=== PATIENT | female | born 1960 | race Caucasian/White ===

== ENCOUNTER 2022-05-08 09:18 | Outpatient (CLI) | payer OTHER, SELFPAY ==
[2022-05-08 15:01] LABS: SARS PCR* Negative SARS-CoV-2 (Negative)
== END 2022-05-08 09:19 | disposition home or self-care (01) ==
LOC: FBOREF 09:18
PROVIDERS: PCP Family Medicine; Visit Provider Family Medicine
DX: Z20.822 Contact with and (suspected) exposure to COVID-19 (principal); Z01.818 Encounter for other preprocedural examination
CPT/HCPCS: 87635

== ENCOUNTER 2022-05-09 09:10 | Outpatient (CLI) | payer OTHER, SELFPAY ==
--- OUTSIDE RECORDS SUMMARY | 2022-05-01 16:16 | XMS_ITS | Continuity of Care Document ---
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, 1 ppd smoker, rare EtOH Additional Data Assigned Sex Female Problems Active Problems Medical Problem Onset Date Status Asthma Active Hypertension Active Psoriasis Active Anxiety and depression Active Allergic rhinitis Active CANDI (obstructive sleep apnea) Active History of colon polyps November 05, 2017 Resolved Allergic conjunctivitis Active Morbid obesity Active Postmenopausal bleeding Active S/P knee replacement May 31, 2016 Resolved S/P section Resolved History of colonoscopy with November 05, 2017 Resolved polypectomy Medications Medication Status Dose Units Route Directions Qty Days Start End Ins tructions Date Date Albuterol Active 2 PUFF INH Every 4 25 December Sulfate Hours as , (Proair Hfa) needed for 2021 90 Mcg/Puff Wheezing/Di 12:17pm INH fficult Breathing Betamethasone Active 0.05 % EX Twice A Day 60 Decembe Dipropionate r , (Diprolene 2019 Af) 0.05 % 8:18pm CRE Bupropion Hcl Active 150 MG PO Daily October (Wellbutrin , Xl) 150 Mg 2021 TAB 12:32pm Bupropion Hcl Active 300 MG PO Daily October (Wellbutrin 5th, Xl) 300 Mg 2021 TAB 12:32pm Clindamycin Active 4 TAB PO Once July 30 tab s one Hcl 5th, hour before 2019 dentist 10:58am Escitalopram Active 10 MG PO Daily December Total daily Oxalate , dose 30 mg (Lexapro) 10 2021 Mg TAB 6:40pm Escitalopram Active 20 MG PO Daily December Total Daily Oxalate , dose 30 mg 2021 6:40pm Fluticasone-S Active 1 PUFF INH Twice A Day 26 February almeterol , (Advair 2021 Diskus 8:50am 250/50) 250 Mcg/50 Mcg INH Folic Acid Active 1 MG PO Daily April 25, 2021 3:02pm Hctz/Valsarta Active 1 TAB PO Daily October n , (Valsartan-Hy 2021 drochlorothia 12:32pm zide) 320 Mg/25 Mg TAB Lorazepam Active 1 MG PO Every December (Ativan) 1 Mg Hours for , TAB Anxiety 2018 3:30pm Methotrexate Active 20 MG PO One Day Per March Sodium Week 2021 12:19am Montelukast Active 10 MG PO Daily be Sodium r 2020 8:37pm Multivitamins Active 1 TAB PO Daily 100 (Multivitamin /Minerals) TAB Olopatadine Active 1 DROP BOTH Twice A Day 31 March Hcl EYES 2021 12:19am Triamcinolone Active 1 SPRAY BOTH Daily 27 December Acetonide NOST , (Triamcinolon 2019 e Acetonide 4:08pm Nasal [place]) 55 Mcg/Act AER Albuterol Discontin 1 PUFF Every 4-01 April ued Hours as , needed 2019 9:13am Albuterol Discontin 2 PUFF INH Every 4 May Sulfate ued Hours as , , (Proair Hfa) needed for 2018 2021 90 Mcg/Puff Wheezing/Di 6:42pm 12:17p INH fficult m Breathing Betamethasone Discontin 0.05 % EX Twice A Day May D ecemb Dipropionate ued , er (Diprolene 2019, Af) 0.05 % 9:40pm 2020 CRE 8:18pm Betamethasone Discontin 0.05 % EX Twice A Day May A ugust Dipropionate ued , , (Diprolene 2018 2019 Af) 0.05 % 6:42pm 9:40pm CRE Betamethasone Discontin 0.05 % EX Twice A Day Hermila plasencia Dipropionate ued , (Diprolene 2018 Af) 0.05 % 6:42pm CRE Bupropion Hcl Discontin 150 MG PO Daily March (Wellbutrin ued 30th, y 5th, Xl) 150 Mg 2020 2021 TAB 3:01pm 12:32p m Bupropion Hcl Discontin 300 MG PO Daily May (Wellbutrin ued 3rd, y 5th, Xl) 300 Mg 2020 2021 TAB 12:40pm 12:32p m Bupropion Hcl Discontin 300 MG PO Daily May (Wellbutrin ued r 23rd, , Xl) 300 Mg 2019 2020 TAB 12:18pm 12:40p m Bupropion Hcl Discontin 150 MG PO Daily March (Wellbutrin ued r , 30, Xl) 150 Mg 2019 2020 TAB 12:18pm 3:01pm Bupropion Hcl Discontin 150 MG PO Daily 90 (Wellbutrin ued er er Xl) 150 Mg , TAB 2019 2019 11:13am 12:18p m Bupropion Hcl Discontin 300 MG PO Daily 90 Decemb (Wellbutrin ued er er Xl) 300 Mg , TAB 2019 2019 11:13am 12:18p m Bupropion Hcl Discontin 450 MG PO Daily 30 Junem (Bupropion ued er linda Hcl Xl (, 16, Hr)) 450 Mg 2019 2019 TAB 12:22pm 11:13a m Bupropion Hcl Discontin 300 MG PO Daily April (Bupropion ued 16, linda Hcl Xl (2019 14th, Hr)) 300 Mg 9:082019 TAB 12:22p m Bupropion Hcl Discontin 300 MG PO Daily January (Bupropion ued , 16th, Hcl Xl (2019 Hr)) 300 Mg 10:27am 9:08am TAB Bupropion Hcl Discontin 300 MG PO Daily December (Bupropion ued 11, , Hcl Xl (2018 Hr)) 300 Mg 4:08pm 10:27a TAB m Bupropion Hcl Discontin 1 TAB Daily December (Bupropion ued , Hcl Xl (24 2018 Hr)) 300 Mg 4:08pm TAB Cephalexin Discontin 500 MG PO Three Times March Decem b (Keflex) 500 ued A Day 4th, er Mg CAP 2019, 9:50am 2019 11:17a m Clindamycin Discontin 4 TAB PO Once December 4 t abs one Hcl ued , r 5th, hour before 2018 2019 dentist 7:09pm 10:58a m Clindamycin Discontin 3 TAB PO Once 02 JanuaryDecember 27 ta bs one Hcl ued , 11, hour before 2018 2018 dentist 4:08pm 7:09pm Clindamycin Discontin 4 TAB Once December 28 ta b one Hcl ued , hour before 2018 dentist 4:08pm Diphtheria/Te Discontin 0.5 ML IM Once March tanus/Acell ued 2nd, 2nd, Pertussis 2021 2021 (Adacel) 0.5 9:10am 10:36a Ml INJ m Escitalopram Discontin 30 MG PO Daily 135 December Oxalate ued r , , 2020 2021 8:37pm 6:40pm Escitalopram Discontin 30 MG PO Daily July Oxalate ued 24th, er 2020 03, 4:56pm 2020 8:37pm Escitalopram Discontin 30 MG PO Daily April Oxalate ued , r 2019, 9:08am 2019 4:56pm Escitalopram Discontin 30 MG PO Daily January Oxalate ued , , 2019 2019 10:27am 9:08am Escitalopram Discontin 30 MG PO Daily December Oxalate ued , , 2018 2019 4:08pm 10:27a m Escitalopram Discontin 1.5 TAB Daily December Oxalate ued 2018 4:08pm Fluticasone-S Discontin 1 PUFF INH Twice A Day 3 February almeterol ued r , (Advair 2019 2021 Diskus 8:18pm 8:50am 250/50) 250 Mcg/50 Mcg INH Fluticasone-S Discontin 1 PUFF INH Twice A Day 3 May D ecemb almeterol ued , er (Advair 2019, Diskus 9:40pm 2019 250/50) 250 8:18pm Mcg/50 Mcg INH Fluticasone-S Discontin 1 PUFF INH Twice A Day 27 December Au erinn almeterol ued , , (Advair 2018 2019 Diskus 4:08pm 9:40pm 250/50) 250 Mcg/50 Mcg INH Fluticasone-S Discontin 1 PUFF Twice A Day Ma brianna almeterol ued , (Advair 2018 Diskus 4:08pm 250/50) 250 Mcg/50 Mcg INH Folic Acid Discontin 1 MG PO Daily February ued , 2019 11:12am 3:02pm Folic Acid Discontin 1 MG PO Daily December ued , 2018 4:08pm 11:12a m Folic Acid Discontin 1 TAB Daily December ued 2018 4:08pm Hctz/Losartan Discontin 1 TAB PO Daily December ued , (Losartan/Hct 2018 z) 100 Mg/25 4:08pm Mg TAB Hctz/Valsarta Discontin 1 TAB PO Daily March n ued , 5th, (Valsartan-Hy 2020 2021 drochlorothia 3:02pm 12:32p zide) 320 m Mg/25 Mg TAB Hctz/Valsarta Discontin 1 TAB PO Daily March n ued , , (Valsartan-Hy 2019 2020 drochlorothia 9:50am 3:02pm zide) 320 Mg/25 Mg TAB Hctz/Valsarta Discontin 1 TAB PO Daily February n ued , , (Valsartan-Hy 2019 2019 drochlorothia 1:36pm 9:50am zide) 320 Mg/25 Mg TAB Hctz/Valsarta Discontin 1 TAB PO Daily December n ued , , (Valsartan-Hy 2019 2019 drochlorothia 11:37am 1:36pm zide) 320 Mg/25 Mg TAB Hctz/Valsarta Discontin 1 TAB PO Daily May n ued , , (Valsartan-Hy 2018 2019 drochlorothia 6:42pm 11:37a zide) 320 m Mg/25 Mg TAB Hctz/Valsarta Discontin 1 TAB PO Daily December n ued , , (Valsartan-Hy 2018 2018 drochlorothia 4:10pm 6:42pm zilaecy) 160 Mg/25 Mg TAB Methotrexate Discontin 20 MG PO One Day Per December e Sodium ued Week , 2021 2:05pm 12:19a m Methotrexate Discontin 20 MG PO One Day Per Novem M arch Sodium ued Week r , 2020 9:10pm 2:05pm Methotrexate Discontin 20 MG PO One Day Per Decembe N ovemb Sodium ued Week r , er 2019, 12:18pm 2020 9:10pm Methotrexate Discontin 20 MG PO One Day Per March emb Sodium ued Week , 2019, 9:50am 2019 12:18p m Methotrexate Discontin 20 MG PO One Day Per May Ju ne Sodium ued Week , 2018 6:42pm 9:50am Methotrexate Discontin 20 MG PO One Day Per December ust Sodium ued Week , 2018 4:08pm 6:42pm Methotrexate Discontin 8 TAB One Day Per Dec ch Sodium ued Week 2018 4:08pm Montelukast Discontin 10 MG PO Daily July Sodium ued , er 2020 03, 4:56pm 2020 8:37pm Montelukast Discontin 10 MG PO Daily April Sodium ued , r 2019, 9:08am 2019 4:56pm Montelukast Discontin 10 MG PO Daily January Sodium ued , 2019 10:27am 9:08am Montelukast Discontin 10 MG PO Daily December Sodium ued 2018 4:08pm 10:27a m Montelukast Discontin 1 TAB Daily December Sodium ued 2018 4:08pm Olopatadine Discontin 1 DROP BOTH Twice A Day 5 Decee Ju ne Hcl ued EYES r , 2019 8:18pm 12:19a m Olopatadine Discontin 1 DROP BOTH Twice A Day May emb Hcl ued EYES , er 2018, 2:54pm 2019 8:18pm Olopatadine Discontin 1 DROP BOTH Twice A Day May emb Hcl (Patanol) ued EYES , er 5 Ml SOLN 2018, 8:29pm 2019 11:17a m Triamcinolone Discontin 1 SPRAY Daily December Acetonide ued , (Triamcinolon 2018 e Acetonide 4:08pm Nasal [place]) 55 Mcg/Act AER Zoster Discontin 50 MCG IM Once March Vaccine ued , , Recombinant 2021 2021 Adj 9:10am 10:36a (Shingrix) 50 m Mcg/0.5 Ml INJ Zoster Discontin 50 MCG IM Once Vaccine ued r , er Recombinant 2021 02, Adj 4:39pm 2020 (Shingrix) 50 5:17pm Mcg/0.5 Ml INJ Immunizations Immunization Event Date Not Given Dose Grey Roll Man Lot Vac cine Reason Number Number Informatio n Statement (VIS) Deta il COVID-19 Moderna November 28, 2020 COVID-19 Moderna December 26, 2020 COVID-19 Moderna August 31, 2020 Influenza August 26, 2016 Influenza July 06, 2020 Influenza November 08, 2010 Influenza June 282010 Influenza August 29, 2011 Influenza August 06, 2012 Influenza August 31, 2013 Influenza October 03, 2014 Influenza October 022015 Influenza July 052019 Prevnar Adult September 262015 Pneumovax Adult August 272011 Shingrix August 31, GLAXOSMITH KZ455 2020 Shingrix March 28 GLAXO SK [id number] 2021 Tetanus/Diptheri September 26 a 2010 Tdap September 26 (adolescent/adul 2010 t) Tdap March 28 SANOFI (adolescent/adul 2021 t) Procedures Procedure Date Performed Status TRANSVAGINAL US NON-OB April 04, 2022 completed Transvaginal ultrasound of April 04, 2022 completed pelvis Relevant Diagnostic Tests and/or Laboratory Data Diagnostic Imaging Reports Report Dictated Date/Time Dictated By Status April 04, 2022 1:47pm [place] [address] ~DEPARTMENT OF DI AGNOSTIC IMAGING~ Patient: LADAN RICARDO MR #: [id number] : 1960 Age: 62 Sex: F Ordering MD: Amena Dial MD /Bed: Loc: RAD Report #: [id number] US/PEL CHITRA TV Date: 04/04/22 Signed For Patients: As a result of the entury Cures Act, medical imaging exams and procedure reports are release d immediately into your electronic medical record. You may view this repo rt before your referring provider. If you have questions, please contact y our health care provider. CLINICAL HISTORY: Postmenopausal bleeding TECHNIQUE: 2D law scale were acquired of the pelv is using a transvaginal approach. FINDINGS: On transvaginal imaging, the myometrium has a normal uniform echotexture. The endometrial lining measures 6 mm in thickness. A small amount of fluid appears to be present within the endoce rvical canal. The left ovary is not visualized and th e right ovary measures 2.1 x 0.9 x 1.7 cm. There are no suspicious fluid c ollections within the cul-de-sac. IMPRESSION: Endometrial thickness 6 millimeters wit h a small amount of endocervical fluid. Dictated by Amena Banuelos MD @ 2 10:19:25 AM (Electronically Signed) Dictated By: AMENA BANUELOS MD Signed By: AMENA BANUELOS MD Advance Directives Advance Directive Response Recorded Date/Time Has patient completed a No April 08, 2022 5:26pm Health Care Directive? Insurance Providers Guarantor Ladan Ricardo Address [address] [place] [id number] Contact Info. Home Phone: Payer Policy Id Coverage Id Subscriber's Subscriber Id Effective E xpiration Name Date Date Blue [id number] Ladan Ricardo [facility] [id number] Encounters Encounter Location(s) Arrival/Admit Date Discharge/Depart Date Provider(s) Registered [place] April 04, 2022 Kenneth Dial [facility] 12:47pm Saqib VILLALBA Plan of Treatment Future Tests Future scheduled test information is unavailable Pending Tests Pending diagnostic test information is unavailable Future Visits Future appointment information is unavailable Referrals to Other Providers Referral information is unavailable Future Procedures Procedure Name Scheduled Date Colonoscopy Surveillance Pap Screening w HPV Future Medications Future medication information is unavailable Patient Instructions Patient instructions are unavailable
--- NOTE | 2022-05-09 11:52 | W.ANESCHARGE ---
Anesthesia Charges Start Date/Time Anesthesia Start Date: 05/09/22 Anesthesia Start Time: 10:32 Stop Date/Time Anesthesia Stop Date: 05/09/22 Anesthesia Stop Time: 11:44 Summary Emergency: No
--- NOTE | 2022-05-09 14:20 | W.ANESCHARGE ---
Anesthesia Charges Start Date/Time Anesthesia Start Date: 05/09/22 Anesthesia Start Time: 10:32 Stop Date/Time Anesthesia Stop Date: 05/09/22 Anesthesia Stop Time: 11:44 Summary Emergency: No
== END 2022-05-09 09:11 | disposition home or self-care (01) ==
PROVIDERS: PCP Family Medicine; Visit Provider Surgery
DX: Z12.11 Encounter for screening for malignant neoplasm of colon (principal); K63.5 Polyp of colon; K57.30 Diverticulosis of large intestine without perforation or abscess without bleeding; Z86.010 Personal history of colon polyps; Z80.0 Family history of malignant neoplasm of digestive organs
CPT/HCPCS: 45381; 45385; 811; 88305; J2704; J3490

== ENCOUNTER 2022-09-25 09:01 | Outpatient (CLI) | payer OTHER, SELFPAY ==
[2022-09-25 14:02] LABS: Basophils Absolute Auto 0.05 K/uL (0.00-0.30); Basophils Percent Auto 0.6 % (0.0-3.0); Eosinophils Absolute Auto 0.13 K/uL (0.00-0.50); Eosinophils Percent Auto 1.5 % (0.0-7.0); Hematocrit 42.3 % (33.0-51.0); Hemoglobin* 13.9 gm/dL (12.0-16.0); Lymphocytes Percent Auto 15.8 % (20-44); Mean Corpuscular HGB Conc 33 gm/dL (32-36); Mean Corpuscular Hemoglobin 30 pg (26-34); Mean Corpuscular Volume 92 fL (80-100); Monocytes Percent Auto 6.9 % (0.0-11.0); Neutrophils Percent Auto 75.2 % (42.0-72.0); Platelet Count* 413 K/uL (140-440); Red Blood Count 4.62 m/uL (4.00-5.20); White Blood Count* 8.94 K/uL (4.50-11.00)
[2022-09-25 14:05] LABS: Slide Review Reflex No
[2022-09-25 14:50] LABS: Chloride* 104 mmol/L (96-114); Potassium* 4.8 mmol/L (3.6-5.1); Sodium* 140 mmol/L (135-149)
[2022-09-25 14:53] LABS: Alanine Aminotransferase* 21 U/L (4-35); Blood Urea Nitrogen* 17 mg/dL (7-30); Carbon Dioxide* 32 mmol/L (20-32); Creatinine* 0.8 mg/dL (0.5-1.5); Estimated Glomerular Filt Rate 84 ml/min; Glucose* 138 mg/dL (60-115)
[2022-09-25 14:54] LABS: Calcium* 9.2 mg/dL (8.4-10.6)
== END 2022-09-25 09:02 | disposition home or self-care (01) ==
PROVIDERS: PCP Family Medicine; Visit Provider Family Medicine
DX: I10 Essential (primary) hypertension (principal); L40.9 Psoriasis, unspecified; E11.9 Type 2 diabetes mellitus without complications; E66.01 Morbid (severe) obesity due to excess calories
CPT/HCPCS: 80048; 84460; 85025

== ENCOUNTER 2023-04-03 10:21 | Outpatient (CLI) | payer OTHER, SELFPAY ==
--- NOTE | 2023-04-03 12:20 | W.ANESCHARGE ---
Anesthesia Charges Start Date/Time Anesthesia Start Date: 04/03/23 Anesthesia Start Time: 11:37 Stop Date/Time Anesthesia Stop Date: 04/03/23 Anesthesia Stop Time: 12:15
--- NOTE | 2023-04-03 13:46 | W.ANESCHARGE ---
Anesthesia Charges Start Date/Time Anesthesia Start Date: 04/03/23 Anesthesia Start Time: 11:37 Stop Date/Time Anesthesia Stop Date: 04/03/23 Anesthesia Stop Time: 12:15
== END 2023-04-03 10:22 | disposition home or self-care (01) ==
LOC: OP CLINIC 10:22
PROVIDERS: PCP Family Medicine; Visit Provider Surgery
DX: Z86.010 Personal history of colon polyps (principal); K63.5 Polyp of colon; D49.0 Neoplasm of unspecified behavior of digestive system; K57.30 Diverticulosis of large intestine without perforation or abscess without bleeding; Z09 Encounter for follow-up examination after completed treatment for conditions other than malignant neoplasm
CPT/HCPCS: 00811; 45380; 45385; 88305; J2704

== ENCOUNTER 2023-07-02 08:56 | Outpatient (CLI) | payer OTHER, SELFPAY ==
[2023-07-02 15:30] LABS: Cholesterol* 216 mg/dL (90-199)
[2023-07-02 15:31] LABS: HDL Cholesterol* 48 mg/dL (>=50); LDL Cholesterol Calculated 140 mg/dL (<100); Triglycerides* 141 mg/dL (40-149)
== END 2023-07-02 08:57 | disposition home or self-care (01) ==
PROVIDERS: PCP Family Medicine; Visit Provider Family Medicine
DX: R79.89 Other specified abnormal findings of blood chemistry (principal); E11.9 Type 2 diabetes mellitus without complications; E66.01 Morbid (severe) obesity due to excess calories
CPT/HCPCS: 80061

== ENCOUNTER 2023-11-07 10:51 | Outpatient (CLI) | payer OTHER, SELFPAY | END 2023-11-07 10:52 | disposition home or self-care (01) | LOC: NFLDREF 10:53 | PROVIDERS: PCP Family Medicine; Visit Provider Family Medicine | DX: E11.9 Type 2 diabetes mellitus without complications (principal); E66.01 Morbid (severe) obesity due to excess calories; I10 Essential (primary) hypertension | CPT/HCPCS: 80048; 84460 ==

== ENCOUNTER 2023-11-12 16:59 | Outpatient (CLI) | payer OTHER, SELFPAY ==
--- NOTE | 2023-11-12 17:00 | CRLHL7_ITS ---
For Patients: As a result of the Century Cures Act, medical imaging exams and procedure reports are released immediately into your electronic medical record. You may view this report before your referring provider. If you have questions, please contact your health care provider. INDICATION: Postmenopausal bleeding COMPARISON: 04/04/2022 TECHNIQUE: 2D law scale and color Doppler images were acquired of the pelvis using a transabdominal and transvaginal approach. FINDINGS: Left uterine fundal fibroid is present measuring 2.7 x 1.6 x 2.6 cm. Uterus measures 7.7 cm in length by 4.2 cm in AP diameter by 5.3 cm in transverse dimension. The endometrial lining measures 10 mm in composite thickness. A small amount of fluid is present within the endocervical canal. Incidental cervical nabothian cysts. The right ovary measures 2.6 x 1.2 x 2.0 cm in size and the left ovary measures 3.6 x 1.9 x 2.8 cm. The ovaries demonstrate normal arterial and venous blood flow on color Doppler analysis. There are no suspicious fluid collections within the cul-de-sac. IMPRESSION: Endometrial thickness 1 cm. Partially calcified left uterine fibroid. Dictated by Keyur Davis MD @ 11/13/2023 9:45:10 AM (Electronically Signed)
== END 2023-11-12 17:00 | disposition home or self-care (01) ==
LOC: US 16:59
PROVIDERS: PCP Family Medicine; Visit Provider Obstetrics & Gynecology
DX: N95.0 Postmenopausal bleeding (principal)
CPT/HCPCS: 76830; 76856

== ENCOUNTER 2023-12-16 06:05 | Day surgery (SDC) | payer OTHER, SELFPAY ==
--- OUTSIDE RECORDS SUMMARY | 2023-12-16 06:07 | XMS_ITS | Clinical Summary ---
Author Name Unknown Organization [employer] [facility] Address [place], [place] [address] Care Team Providers Care Tissue Technologist Name Role Phone Keyur Dial MD Primary Care Provider + Allergies Active Allergy Reactions Criticality Noted Date Comments Jaspreet Inhibitors Cough 12/24/2006 Penicillins Hives 12/24/2006 Medications Medication Sig Dispensed Refills Start Date End Date Status multivitamin capsule Take 1 capsule by mouth once daily. 0 Active omega-3 fatty acids-vitamin E (FISH OIL) 1,000 mg cap Take 1 capsule by mouth. 0 Active fluocinonide 0.05 TOPICAL (LIDEX) 0.05 % external solutionIndications: Psoriasis Apply topically to affected area(s) 2 times daily. 60 mL 12 10/21/2016 Active betamethasone dipropionate 0.05% (DIPROLENE) 0.05 % ointmentIndications: Psoriasis APPLY EXTERNALLY TO THE AFFECTED AREA TWICE DAILY 45 g 0 10/23/2017 Active valsartan-hydrochlor othiazide (DIOVAN HCT) 160-25 mg per tabletIndications:HT N (hypertension) TAKE 1 TABLET BY MOUTH EVERY DAY 90 tablet 2 02/20/2018 Active clindamycin (CLEOCIN) 300 mg capsuleIndications:P rophylactic antibiotic for dental procedure indicated due to prior joint replacement Take 3 pills 1 hour before dental work 6 capsule 0 05/15/2018 Active buPROPion (WELLBUTRIN XL) 300 mg Extended-Release tabletIndications:An xiety Take 1 tablet by mouth every morning. 90 tablet 3 05/15/2018 Active losartan-hydrochloro thiazide (HYZAAR) 100-25 mg tabletIndications:Es sential hypertension Take 1 tablet by mouth once daily. 90 tablet 3 06/09/2018 Active folic acid 1 mg tabletIndications:Ps oriasis TAKE 1 TABLET BY MOUTH EVERY DAY 90 tablet 2 09/02/2018 Active albuterol HFA (VENTOLIN HFA) 90 mcg/actuation inhalerIndications:M oderate persistent asthma, unspecified whether complicated Inhale 1-2 Puffs by mouth every 4 hours if needed. 18 g 0 12/18/2018 Active escitalopram oxalate (LEXAPRO) 20 mg tabletIndications:Mo derate episode of recurrent major depressive disorder (HC) Take 1.5 tablets by mouth every morning. 45 tablet 0 12/18/2018 Active montelukast (SINGULAIR) 10 mg tabletIndications:Mo derate persistent asthma without complication Take 1 tablet by mouth at bedtime. 30 tablet 0 12/18/2018 Active fluticasone-salmeter ol (ADVAIR DISKUS) 250-50 mcg/Dose diskus inhalerIndications:M oderate persistent asthma without complication Inhale 1 Puff by mouth every 12 hours. 1 Inhaler 0 12/18/2018 Active triamcinolone, 55 mcg each actuation, nasal (NASACORT AQ) 55 mcg nasal sprayIndications:All ergic rhinitis, unspecified seasonality, unspecified trigger Inhale 1 [place] into both nostrils once daily. 16.9 g 0 12/18/2018 Active methotrexate (RHEUMATREX) 2.5 mg tabletIndications:Ps oriasis TAKE 8 TABLETS BY MOUTH ONCE A WEEK 32 tablet 0 02/01/2019 Active Active Problems Problem Noted Date Diagnosed Date Tubular adenoma of colon 11/26/2017 Tobacco use disorder 05/31/2016 Primary osteoarthritis of both knees 05/27/2016 CANDI 10/18/2014 Overview: 10/04/2014 AHI-5.4 FH: colon cancer 03/04/2014 Personal history of colonic polyps 09/23/2012 Allergic Rhinitis 08/05/2009 Anxiety state, unspecified 12/24/2006 Unspecified asthma(493.90) 12/24/2006 Resolved Problems Problem Noted Date Diagnosed Date Resolved Date Unspecified essential hypertension 12/24/2006 03/11/2017 Encounters Date Type Department Care Team Description 11/21/2023 Telephone [facility] [place] [address] [place] [address] [address] [id number] Consultants, Orthopedic Appointment Request 11/13/2023 Lab Requisition [facility] [phone] Sandra Nowak MD from Last 3 Months Immunizations Name Administration Dates Next Due Influenza, IIV3 (Age >=3 years) 08/06/20 13,09/15/2012,07/12/2011,2010 Influenza, IIV4 08/26/2017, 6,10/03/2015,2013 Pneumococcal Poly,23-Valent (Pneumovax) 09/15/2012 Pneumococcal conj 13-Valent (Prevnar 13) 10/17/2016 Tdap 10/17/2011 Family History Medical History Relation Name Comments Psychiatric illness Brother Depressi on Cancer-colon Father Hypertension Father Psychiatric illness Mother Depressi on Relation Name Status Comments Brother Father Mother Social History Tobacco Use Types Packs/Day Years Used Date Smoking Tobacco: Every Day Cigarettes 1.5 30 Smokeless Tobacco: Never Tobacco Cessation:Ready to Q uit: Yes; Counseling Given: Yes Alcohol Use Standard Drinks/Week Comments No 0 (1 standard drink = 0.6 oz pur e alcohol) Sex and Gender Information Value Date Recorded Sex Assigned at Not on file Gender Identity Not on file Sexual Orientation Not on file Obstetrics History Last Filed Vital Signs Vital Sign Reading Time Taken Comments Blood Pressure 140/72 05/15/2018 2:05 PM CDT Pulse 70 05/15/2018 1:59 PM CDT Temperature 36.9 ??C (98.4 ??F) 11/05/2017 9:20 AM CS T Respiratory Rate 14 11/11/2017 11:57 AM POTABLE WATER TREATMENT OPERATOR Oxygen Saturation 93% 11/05/2017 12:00 PM POTABLE WATER TREATMENT OPERATOR Inhaled Oxygen Concentration - - Weight 131 kg (288 lb 14.4 oz) 05/15/2018 1:59 P M CDT Height 162.6 cm (5' 4) 05/15/2018 1:59 PM CDT Body Mass Index 49.59 05/15/2018 1:59 PM CDT Plan of Treatment Health Maintenance Due Date Last Done Comments HIV for age 15-65 1977 Hepatitis C screening for age 18-79 02/08/1980 Zoster (shingles) series for age 50+ (1 of 2) 02/08/2012 Depression screening for age 12+ 03/11/2018 03/11/2017, 05/21/2016, 05/21/2016 BMI (ht and wt on same day) for age 18+ 05/15/2019 05/15/2018, 05/05/2017, 03/11/2017, Additional history exists Colonoscopy through age 75 11/05/202011/05, 09/23/2012, 09/23/2012, Additional history exists Lipids for age 45-75 05/21/2021 05/21/2016, 10/03/2015, 08/06/2013, Additional history exists Tetanus booster 10/17/2021 10/17/2011 COVID-19 vaccine series ( season) 2023 05/10/2022 Influenza for age 50-64 06/27/2023 08/26/20 17, 10/17/2016, 10/03/2015, Additional history exists Mammogram for age 45-75 12/28/2023 12/28/19 23, 10/03/2021, 07/05/2020, Additional history exists Pap test for age 21-65 03/28/2025 2, 03/28/2022, 05/15/2015 (Completed outside of [facility]), Additional history exists Tdap Completed 10/17/2011 Pneumococcal series for age 6-64 Aged Out 10/17/2016, 09/15/2012 No longer eligibl e based on patient's age to complete this topic Goals Goal Patient Goal Type Associated Problems Recent Progress Patient-Stated? Author BLOOD PRESSURE - MAINTAINS BP less than 140/90 Blood Pressure Keyur Wheeler MD Medical Devices Implanted Type Area Explosive Ordnance Manager Device Identifier Shelf Expiration Date Model / Serial / Lot Triathlon Tibial Component Implanted:Qty: 1 on 05/31/2016 by Mamadou Michelle MD at [facility] Right: Knee [employer] 04/30/2021 / / [id number] Triathlon Posterior Stabilized Femoral Implanted:Qty: 1 on 05/31/2016 by Mamadou Michelle MD at [facility] Right: Knee [employer] 04/04/2021 / / [id number] Triathlon Symmetric Patella Implanted:Qty: 1 on 05/31/2016 by Mamadou Michelle MD at [facility] Right: Knee [employer] 04/22/2021 / / [id number] Triathlon Tibial Bearing Insert Implanted:Qty: 1 on 05/31/2016 by Mamadou Michelle MD at [facility] Right: Knee [employer] 01/25/2020 / / [id number] Triathlon Tibial Component Implanted:Qty: 1 on 05/31/2016 by Mamadou Michelle MD at [facility] Left: Knee [employer] 04/30/2021 / / [id number] Triathlon Posterior Stabilized Femoral Implanted:Qty: 1 on 05/31/2016 by Mamadou Michelle MD at [facility] Left: Knee [employer] 04/07/2021 / / [id number] Triathlon Symmetric Patella Implanted:Qty: 1 on 05/31/2016 by Mamadou Michelle MD at [facility] Left: Knee [employer] 02/06/2021 / / [id number] Triathlon Tibial Bearing Insert Implanted:Qty: 1 on 05/31/2016 by Mamadou Michelle MD at [facility] Left: Knee [employer] 09/17/2020 / / [id number] Procedures Procedure Name Priority Date/Time Associated Diagnosis Comments LAB TRACKING EVENT Routine 11/12/2023 3: 41 PM POTABLE WATER TREATMENT OPERATOR PATH TISSUE EXAM Routine 11/12/2023 3:40 PM POTABLE WATER TREATMENT OPERATOR from Last 3 Months Results * LAB TRACKING EVENT (11/12/2023 3:41 PM POTABLE WATER TREATMENT OPERATOR) Other (Other) Client Collect / Unknown 11/12/2023 3:41 PM POTABLE WATER TREATMENT OPERATOR 11/13/2023 3:21 PM POTABLE WATER TREATMENT OPERATOR Sandra Nowak MD LAB BILL ONLY [email or web address] [address] [place] [address], * PATH TISSUE EXAM (11/12/2023 3:40 PM POTABLE WATER TREATMENT OPERATOR) Case Report Pathology Report ?Case: [id number] ? Authorizing Provider: ??Sandra Nowak MD ?Collected: ? 11/12/2023 1540 ? Ordering Location: ? [facility] ?Received: ?11/13/2023 1545 ? Pathologist: ? Adam Grier MD ? Specimen: ?Vaginal ? 11/17/2023 9:12 AM POTABLE WATER TREATMENT OPERATOR [email or web address] Final Diagnosis A) VAGINAL POLYP, POLYPECTOMY: 1. Benign endocervical polyp with chronic cervicitis 2. Negative for glandular neoplasia, squamous intraepithelial lesion and malignancy 11/17/2023 9:12 AM POTABLE WATER TREATMENT OPERATOR [email or web address] Clinical Information Abnormal uterine bleeding, postmenopausal 11/17/2023 9:12 AM POTABLE WATER TREATMENT OPERATOR [facility] Gross Description A) Received in formalin, labeled with the patient's name and date of , is a 4.2 x 2.8 x 0.3 cm portion of little-pink polypoid mucosa which is sectioned. ??Additionally received is a 1.9 x 1.4 x 0.1 cm aggregate of blood-tinged mucus. ??The specimen is entirely submitted in 5 cassettes. EKW 11/13/2023 11/17/2023 9:12 AM POTABLE WATER TREATMENT OPERATOR [facility] Microscopic Description The final diagnosis is based on microscopic examination of appropriate sections of all specimens. 11/17/2023 9:12 AM POTABLE WATER TREATMENT OPERATOR [facility] Additional Information Interpreted at [facility] - [address] [place] [address] 11/17/2023 9:12 AM POTABLE WATER TREATMENT OPERATOR [facility] Other VAGINAL SWAB / Unknown 11/12/2023 3:40 PM POTABLE WATER TREATMENT OPERATOR 11/13/2023 3:45 PM POTABLE WATER TREATMENT OPERATOR Sandra Nowak MD PATHOLOGY/CYTOLOGY Performing Organization Address City/State/[facility] Co de Phone Number [facility] [address] [place] [address], from Last 3 Months Advance Directives Latest Code Status on File Code Status Date Activated Date Inactivated Comments Full Code 05/31/2016 4:44 PM 06/03/2016 5:33 PM Code Status History Code Status Date Activated Date Inactivated Comments Full Code 05/31/2016 10:39 AM 05/31/2016 4:44 PM Care Teams Tissue Technologist Relationship Specialty Start Date End Date Keyur Dial MD [address] [place] [address] PCP - General 02/24/06
[2023-12-16 06:27] VITALS: BMI 45.3
[2023-12-16 06:36] VITALS: BP 160/64; PULSE 101; RESP 16; TEMP 36.6; O2SAT 94
[2023-12-16] MEDS: SODIUM CHLORIDE 0.9 % (FLUSH) 10 ML SYRINGE IVF (06:55)
[2023-12-16] MEDS: LACTATED RINGERS 1000 ML 1,000 ML 100 ML IV (06:56)
[2023-12-16] MEDS: BUPIVACAINE 0.25% 30 ML INJECTION (07:50)
[2023-12-16] MEDS: LIDOCAINE 1% MDV 20 ML INJECTION (07:50)
[2023-12-16 08:18] VITALS: BP 137/104; PULSE 93; RESP 16; TEMP 36.2; O2SAT 97
--- NOTE | 2023-12-16 08:18 | W.ANESCHARGE ---
Anesthesia Charges Start Date/Time Anesthesia Start Date: 12/16/23 Anesthesia Start Time: 07:20 Stop Date/Time Anesthesia Stop Date: 12/16/23 Anesthesia Stop Time: 08:18
--- NOTE | 2023-12-16 08:18 | W.PM.GYNPROC ---
Procedure Note Date of procedure: 12/16/23 Pre-op diagnosis: Postmenopausal bleeding, stenotic cervix, thickened endometrial stripe Post-op diagnosis: same Procedure: Hysteroscopy. D&C with TruClear morcellator. Anesthesia: MAC and local (Paracervical block) Complications: None. Surgeon: Sandra Nowak MD Estimated blood loss (mL): 5 Pathology: specimen obtained, sent to pathology (Endometrial curettings) Condition: stable Disposition: same day Findings: Anteverted uterus. Thickened endometrial lining. No evidence of discrete polyps. Procedure Description: After obtaining informed consent, the patient was taken to the operating room where she received monitored anesthesia care. She was prepared and draped in the normal sterile fashion, in the dorsal lithotomy position. An open-sided bivalve speculum was introduced into the vagina and the cervix visualized. The anterior lip of the cervix was grasped with a single-tooth tenaculum for traction. A paracervical block was then administered using a total of 20 mL of a 50/50 mixture of 0.25% Marcaine and 1% lidocaine plain. The cervix was stenotic, and initially I could not pass an os finder. Tiny cervical dilators were used to establish direction of the endocervical canal and dilate the cervix to the largest dilator of the set. The uterus was gently sounded. Sound length was 6 cm. The cervix was further gently dilated to a #6 Hegar dilator. A hysteroscope was then advanced under direct visualization through the cervix into the uterine cavity. Sterile normal saline was used as distending medium. The uterine cavity was carefully inspected with the findings noted above. Pictures were taken for documentation purposes. The TruClear morcellator was inserted through the operating channel in the hysteroscope. The morcellator was used to remove the the thickened endometrial lining tissue anteriorly, posteriorly and to the cornua bilaterally.. The hysteroscope was then removed. The endometrial lining was then sharply curetted, very little extra tissue was recovered. The hysteroscope was removed. The tenaculum was removed. There was no active bleeding noted. The speculum was removed. The patient tolerated the procedure well. Sponge, lap, needle, and instrument counts reported as correct x2. The patient was taken to the recovery room awake in a stable condition.
[2023-12-16 08:30] VITALS: BP 132/84; PULSE 99; RESP 16; O2SAT 94
[2023-12-16 08:45] VITALS: BP 160/62; PULSE 97; RESP 16; O2SAT 95
[2023-12-16 09:00] VITALS: BP 145/82; PULSE 96; RESP 16; O2SAT 94
[2023-12-16] MEDS: ACETAMINOPHEN 500 MG TABLET 1000 MG PO (09:15)
--- NOTE | 2023-12-16 09:22 | SUR.PHASEII ---
pt tolerated toast and water. Supplaci in to see pt and reviewed how the procedure went. Pt wheelchair out to car with .
--- NOTE | 2023-12-16 10:42 | W.ANESCHARGE ---
Anesthesia Charges Start Date/Time Anesthesia Start Date: 12/16/23 Anesthesia Start Time: 07:20 Stop Date/Time Anesthesia Stop Date: 12/16/23 Anesthesia Stop Time: 08:18
== END 2023-12-16 09:23 | disposition home or self-care (01) ==
PROVIDERS: PCP Family Medicine; Visit Provider Obstetrics & Gynecology
PROC: 0UDB8ZZ Extraction of Endometrium, Via Natural or Artificial Opening Endoscopic (ICD-10-PCS; CPT 58558; principal; 2023-12-16 07:15)
DX: N95.0 Postmenopausal bleeding (principal); N88.2 Stricture and stenosis of cervix uteri; N84.0 Polyp of corpus uteri; R93.89 Abnormal findings on diagnostic imaging of other specified body structures; E11.9 Type 2 diabetes mellitus without complications
CPT/HCPCS: 58558; 00952; 82962; 88305; A9270; J0665; J1100; J1885; J2250; J2405; J2704; J3010; J7120

== ENCOUNTER 2024-03-31 10:45 | Outpatient (CLI) | payer OTHER, SELFPAY ==
--- OUTSIDE RECORDS SUMMARY | 2024-03-31 10:47 | XMS_ITS | Clinical Summary ---
Author Organization [employer] Address [place], [place] [address] Care Team Providers Care Proofsheet Corrector Name Role Phone Keyur Dial MD Primary Care Provider + Allergies Active Allergy Reactions Criticality Noted Date Comments Jaspreet Inhibitors Cough 12/24/2006 Penicillins Hives 12/24/2006 Medications Medication Sig Dispensed Refills Start Date End Date Status multivitamin capsule Take 1 capsule by mouth once daily. Active omega-3 fatty acids-vitamin E (FISH OIL) 1,000 mg cap Take 1 capsule by mouth. Active fluocinonide 0.05 TOPICAL (LIDEX) 0.05 % external solutionIndications: Psoriasis Apply topically to affected area(s) 2 times daily. 60 mL 12 10/21/2016 Active betamethasone dipropionate 0.05% (DIPROLENE) 0.05 % ointmentIndications: Psoriasis APPLY EXTERNALLY TO THE AFFECTED AREA TWICE DAILY 45 g 10/23/2017 Active valsartan-hydrochlor othiazide (DIOVAN HCT) 160-25 mg per tabletIndications:HT N (hypertension) TAKE 1 TABLET BY MOUTH EVERY DAY 90 tablet 2 02/20/2018 Active clindamycin (CLEOCIN) 300 mg capsuleIndications:P rophylactic antibiotic for dental procedure indicated due to prior joint replacement Take 3 pills 1 hour before dental work 6 capsule 05/15/2018 Active buPROPion (WELLBUTRIN XL) 300 mg [...] every 4 hours if needed. 18 g 12/18/2018 Active escitalopram oxalate (LEXAPRO) 20 mg tabletIndications:Mo derate episode of recurrent major depressive disorder (HC) Take 1.5 tablets by mouth every morning. 45 tablet 12/18/2018 Active montelukast (SINGULAIR) 10 mg tabletIndications:Mo derate persistent asthma without complication Take 1 tablet by mouth at bedtime. 30 tablet 12/18/2018 Active fluticasone-salmeter ol (ADVAIR DISKUS) 250-50 mcg/Dose diskus inhalerIndications:M oderate persistent asthma without complication Inhale 1 Puff by mouth every 12 hours. 1 Inhaler 12/18/2018 Active triamcinolone, 55 mcg each actuation, nasal (NASACORT AQ) 55 mcg nasal sprayIndications:All ergic rhinitis, unspecified seasonality, unspecified trigger Inhale 1 Emerson into both nostrils once daily. 16.9 g 12/18/2018 Active methotrexate (RHEUMATREX) 2.5 mg tabletIndications:Ps oriasis TAKE 8 TABLETS BY MOUTH ONCE A WEEK 32 tablet 02/01/2019 Active Active Problems Problem Noted Date Diagnosed Date Tubular adenoma of colon 11/26/2017 Tobacco use disorder 05/31/2016 Primary osteoarthritis of both knees 05/27/2016 CANDI 10/18/2014 Overview: 10/04/2014 AHI-5.4 FH: colon cancer 03/04/2014 Personal history of colonic polyps 09/23/2012 Allergic Rhinitis 08/05/2009 Anxiety state, unspecified 12/24/2006 Unspecified asthma(493.90) 12/24/2006 Resolved Problems Problem Noted Date Diagnosed Date Resolved Date Unspecified essential hypertension 12/24/2006 03/11/2017 Immunizations Name Administration Dates Next Due Influenza, [...] T Respiratory Rate 14 11/11/2017 11:57 AM COST RECOVERY TECHNICIAN Oxygen Saturation 93% 11/05/2017 12:00 PM COST RECOVERY TECHNICIAN Inhaled Oxygen Concentration - - Weight 131 [...] Tetanus booster 10/17/2021 10/17/2011 COVID-19 vaccine series (2022-24 season) 2023 05/10/2022 Mammogram for age 45-75 12/28/2023 12/28/19 23, 10/03/2021, 07/05/2020, Additional history exists Influenza for age 50-64 06/27/2024 08/26/20 17, 10/17/2016, 10/03/2015, Additional history exists Pap test for age 21-65 03/28/2025 , 03/28/2022, 05/15/2015 (Completed outside of [facility]), Additional history exists Tdap Completed 10/17/2011 Pneumococcal series for age 6-64 Aged Out 10/17/2016, 09/15/2012 No longer eligibl e based on patient's age to complete this topic Goals Goal Patient Goal Type Associated Problems Recent Progress Patient-Stated? Author BLOOD PRESSURE - MAINTAINS BP less than 140/90 Blood Pressure Keyur Wheeler MD Medical Devices Implanted Type Area Assistant Case Manager Device Identifier Shelf Expiration Date Model / Serial / Lot Triathlon Tibial Component Implanted:Qty: 1 on 05/31/2016 by Mamadou Michelle MD at [facility] Right: Knee [employer] 04/30/2021 / / [id number] Triathlon Posterior Stabilized Femoral Implanted:Qty: 1 on 05/31/2016 by Mamadou Michelle MD at [facility] Right: Knee [employer] 04/04/2021 / / [id number] Triathlon Symmetric Patella Implanted:Qty: 1 on 05/31/2016 by Mamadou Michelle MD at [facility] Right: Knee [employer] 04/22/2021 / / [id number] Triathlon Tibial Bearing Insert Implanted:Qty: 1 on 05/31/2016 by Mamadou Michelle MD at [facility] Right: Knee [employer] 01/25/2020 / / [id number] Triathlon Tibial Component Implanted:Qty: 1 on 05/31/2016 by Mamadou Michelle MD at [facility] Left: Knee [employer] 04/30/2021 / / [id number] Triathlon Posterior Stabilized Femoral Implanted:Qty: 1 on 05/31/2016 by Mamadou Michelle MD at [facility] Left: Knee [employer] 04/07/2021 / / [id number] Triathlon Symmetric Patella Implanted:Qty: 1 on 05/31/2016 by Mamadou Michelle MD at [facility] Left: Knee [employer] 02/06/2021 / / [id number] Triathlon Tibial Bearing Insert Implanted:Qty: 1 on 05/31/2016 by Mamadou Michelle MD at [facility] Left: Knee [employer] 09/17/2020 / / [id number] Procedures Procedure Name Priority Date/Time Associated Diagnosis Comments XR MAMMO TIFFANIE BILAT SCREEN Routine 12/27/2022 11:34 AM COST RECOVERY TECHNICIAN Encounter for screening mammogram for malignant neoplasm of breast C ARCHITECT THIN PREP PAP SCREEN IMAGED Routine 03/28/2022 9:57 AM CDT COLONOSCOPY 11/05/2017 10:04 AM COST RECOVERY TECHNICIAN LIPID PANEL W REFLEX MEASURED LDL Routine 05/21/2016 2:07 PM CDT Hypertension from Last 3 Months or Most Recently Relevant to Health Maintenance Results * XR MAMMO TIFFANIE BILAT SCREEN (12/27/2022 11:34 AM COST RECOVERY TECHNICIAN) Anatomical Region Laterality Modality BREASTS, Breast Left, Breast Right Bilateral Mammography Impressions 12/27/2022 11:57 AM COST RECOVERY TECHNICIAN ??There is no radiographic evidence for malignancy. ??Recommend annual mammograms. MAMMOGRAM ASSESSMENT: ??ACR 2 Benign PATIENTS: You will also receive a letter with your examination results in an easy to read format. ??If you have questions about your results, please contact your referring provider. Narrative 12/27/2022 11:57 AM COST RECOVERY TECHNICIAN For Patients: As a result of the Century Cures Act, medical imaging exams and procedure reports are released immediately into your electronic medical record. You may view this report before your referring provider. If you have questions, please contact your health care provider. XR MAMMO TIFFANIE BILAT SCREEN [[id number]] CLINICAL HISTORY: ??This is an asymptomatic 62 y.o. patient. INDICATION FOR EXAM: Mammogram Screening. TECHNIQUE: CC & MLO views were obtained. ??This study was evaluated with the assistance of Computer-Aided Detection. Breast Tomosynthesis was used in interpretation. COMPARISON FILMS: Yes 10/03/21 ? FINDINGS: ??The breasts have scattered areas of fibroglandular density. ??No suspicious masses or microcalcifications. ??There are benign appearing mass(es). Keyur Dial MD MAMMO * C ARCHITECT THIN PREP PAP SCREEN IMAGED (03/28/2022 9:57 AM CDT) Case Report Gynecologic Cytology Report ? Case: [id number] ? Authorizing Provider: ??Keyur Dial MD ??Collected: ? 03/28/2022 0957 ? Ordering Location: ? [facility] ?Received: ?03/29/2022 0845 ? First Screen: ?Madisyn Simms ? Specimen: ?C ARCHITECT ThinPrep Vial Screening, Cervical/Vaginal ? 04/11/2022 1:56 PM CDT [facility] INTERPRETATION/ RESULT NEGATIVE FOR INTRAEPITHELIAL LESION OR MALIGNANCY (NIL) (none) 04/11/2022 1:56 PM CDT [facility] IMEN ADEQUACY Satisfactory for evaluation Endocervical component present 04/11/2022 1:56 PM CDT [facility] HPV REQUEST HPV and PAP 04/11/2022 1:56 PM CDT [facility] Date of LMP 04/11/2022 1:56 PM CDT [facility] Comment:Unknown Post menopau cortney Additional Information 04/11/2022 1:56 PM CDT [facility] Comment: Interpreted at [facility] - [address], [place] [address] Automated Review Successful 04/11/2022 1:56 PM CDT [facility] Comment:Specimen processed s uccessfully by automated hot metal car operator device, ThinPrep Imaging System, [employer] ANCILLARY TESTING C ARCHITECT HPV Ordered, Please see separate report 04/11/2022 1:56 PM CDT [facility] Note The pap test is a screening technique, not a diagnostic procedure. It is used primarily to screen for squamous cancers and precursor lesions. Published studies have shown that it is subject to both false negative and false positive results. The pap test should not be used as the sole means to diagnose or exclude pre-malignant and malignant lesions. 04/11/2022 1:56 PM CDT [facility] Other (Cervical/Vagina l) 03/28/2022 9:57 AM CDT 03/29/2022 8:45 AM CDT Keyur Dial MD PATHOLOGY/CYTOLO GY [facility] [address] [place] [address], [place] * COLONOSCOPY (11/05/2017 10:04 AM COST RECOVERY TECHNICIAN) 11/05/2017 10:0 4 AM COST RECOVERY TECHNICIAN Narrative Transcriptions Alonzo Bianchi MD - 11/05/2017 11:32 AM CST Patient Name: Ariana Ricardo Procedure Date: 11/05/2017 Gender: Female Date of : 1960 Admit Type: Ambulatory Procedure: Colonoscopy Proceduralist: Alonzo Bianchi [facility] Indications/Pre-Op Diagnosis: High risk colon cancer surveillance:Personal history of colonic polyps, Family history of colon cancer in a first-degree relative Medications: Midazolam 6 mg IV, Fentanyl 100 microgramsIV Procedure Description: The patient had risks, benefits and alternatives explained to andgave informed consent. The patient had a stable cardiopulmonary status and judged an adequate candidate for conscious sedation. The colonoscope was passed through the anus and advanced to thececum, identified by appendiceal orifice and ileocecal valve. Thecolonoscopy was performed without difficulty. The patient tolerated the procedure well. The quality of the bowel preparation was good. Complications: No immediate complications. Estimated Blood Loss & Specimen: Estimated blood loss: none. Specimen collected - Yes and sent to Laboratory Findings: The perianal and digital rectal examinations were normal. A 14 mm polyp was found in the cecum. The polyp was sessile. Thepolyp was removed with a hot snare. Resection and retrieval werecomplete. A 8 mm polyp was found in the proximal ascending colon. The polyp was sessile. The polyp was removed with a hot snare. Resection andretrieval were complete. A 16 mm polyp was found in the hepatic flexure. The polyp wassessile. The polyp was removed with a hot snare. Resection and retrieval were complete. A 5 mm polyp was found in the splenic flexure. The polyp was sessile. The polyp was removed with a hot snare. Resection and retrieval were complete. A 6 mm polyp was found in the rectum. The polyp was sessile. Thepolyp was removed with a hot snare. Resection and retrieval werecomplete. Scattered small and large-mouthed diverticula were found in thesigmoid colon, descending colon, splenic flexure and transverse colon. Retroflexion in the right colon was performed. The retroflexed view of the distal rectum and anal verge was normaland showed no anal or rectal abnormalities. The exam was otherwise normal throughout the examined colon. Impressions/Post-Op Diagnosis: - One 14 mm polyp in the cecum, removed with a hot snare. Resectedand retrieved. - One 8 mm polyp in the proximal ascending colon, removed with a hot snare. Resected and retrieved. - One 16 mm polyp at the hepatic flexure, removed with a hot snare. Resected and retrieved. - One 5 mm polyp at the splenic flexure, removed with a hot snare. Resected and retrieved. - One 6 mm polyp in the rectum, removed with a hot snare. Resectedand retrieved. - Diverticulosis in the sigmoid colon, in the descending colon, atthe splenic flexure and in the transverse colon. Recommendation: - Discharge patient to home. - Resume previous diet. - Continue present medications. - Await pathology results. - Repeat colonoscopy in 3 years for surveillance. Moderate Sedation: Moderate (conscious) sedation was administered by the endoscopy nurse and supervised by the endoscopist. The following parameters were monitored: oxygen saturation, heart rate, respiratory rate, adequacyof pulmonary ventilation and reponse to care. Please refer to the patient's medical record flowsheets for moderate sedation details. please see sedation report above. Sedation was given under thedirection of the endoscopist. Moderate (conscious) sedation was administered by the endoscopy nurse and supervised by the endoscopist. The following parameters were monitored: oxygen saturation, heart rate, blood pressure, andresponse to care. Total physician intraservice time was 39 minutes. Alonzo Bianchi, 11/05/2017 11:32:26 AM This report has been signed electronically. Note Initiated On: 11/05/2017 10:04 AM Alonzo Bianchi MD PROCEDURE ORD * (ABNORMAL) LIPID PANEL W REFLEX MEASURED LDL (05/21/2016 2:07 PM CDT) CHOLESTEROL,TOTAL 257(H) 100 - 199 mg/dL 05/21/2016 3:26 PM CDT [facility] TRIGLYCERIDES 149 <150 mg/dL 05/21/2016 3:26 PM CDT [facility] HDL CHOLESTEROL 47 >40 mg/dL 05/21/2016 3:26 PM CDT [facility] NON-HDL CHOLESTEROL 210(H) <145 mg/dl 05/21/2016 3:26 PM CDT [facility] CHOL/HDL RATIO 5.47(H) <4.50 05/21/2016 3:26 PM CDT [facility] LDL CHOLESTEROL 180(H) <=130 mg/dL 05/21/2016 3:26 PM CDT [facility] PATIENT STATUS NOT GIVEN 05/21/2016 3:26 PM CDT [facility] Blood BLOOD SPECIMEN / Unknown Venipuncture / Unknown 05/21/2016 2:07 PM CDT 05/21/2016 2:07 PM CDT Keyur Dial MD CHEMISTRY [facility] [address] [place] [address] [facility] [address] [place] [address], [place] [phone] from Last 3 Months or Most Recently Relevant to Health Maintenance Advance Directives * Full Code (Latest Code Status on File) Date Activated Date Inactivated Comments 05/31/2016 4:44 PM 06/03/2016 5:33 PM * Full Code Date Activated Date Inactivated Comments 05/31/2016 10:39 AM 05/31/2016 4:44 PM Care Teams Proofsheet Corrector Relationship Specialty Start Date End Date Keyur Dial MD [address] [place] [address] PCP - General 02/24/06
== END 2024-03-31 10:46 | disposition home or self-care (01) ==
PROVIDERS: PCP Family Medicine; Visit Provider Family Medicine
DX: E11.9 Type 2 diabetes mellitus without complications (principal); I10 Essential (primary) hypertension; Z79.84 Long term (current) use of oral hypoglycemic drugs
CPT/HCPCS: 80048; 84460; 85025

== ENCOUNTER 2024-06-23 08:16 | Outpatient (CLI) | payer OTHER, SELFPAY ==
--- NOTE | 2024-06-23 08:15 | CRLHL7_ITS ---
For Patients: As a result of the Century Cures Act, medical imaging exams and procedure reports are released immediately into your electronic medical record. You may view this report before your referring provider. If you have questions, please contact your health care provider. BILATERAL SCREENING MAMMOGRAM WITH COMPUTER-AIDED DETECTION AND TOMOSYNTHESIS TECHNIQUE: CC and MLO views were obtained. These mammographic images have been obtained using full-field digital technique. These mammographic images were interpreted with the benefit of computer-aided detection. Breast Tomosynthesis was used in this interpretation. COMPARISON FILM: 07/01/18, 12/17/16, 10/09/15. FINDINGS: There are scattered areas of fibroglandular density IMPRESSION: There is no radiographic evidence for malignancy. ASSESSMENT: BI-RADS Category 1: Negative RECOMMENDATION: Routine screening mammogram in 1 year. A lay language report of this examination will be provided to the patient. Keyur Davis M.D. Diagnostic Radiologist [email or web address] ANT/sg Transcribed: 3:16 p.mimi bettencourt/Dictated by: Keyur Davis MD @ 06/23/2024 12:06:00 PM (Electronically Signed)
--- OUTSIDE RECORDS SUMMARY | 2024-06-23 08:19 | XMS_ITS | Encounter Summary ---
Author Organization [facility] Address [address] [address] Phone Care Team Providers Care Scouring Train Operator Name Role Phone Unavailable Primary Care Provider Unavailabl e Reason for Visit * Reason Comments Ear Problem Pt states needs bila teral ears flushed. Encounter Details Date Type Department Care Team (Late st Contact Info) Description 04/22/2024 2:00 PM CDT Office Visit [facility] [address] [place], [place] [id number] Mike Mantilla APRN, RECONDITIONER [address] [place], [place] [id number] Cerumen in auditory canal on examination (Primary Dx) Social History Tobacco Use Types Packs/Day Years Used Date Smoking Tobacco: Every Day Cigarettes Smokeless Tobacco: Never Tobacco Cessation:Ready to Q uit: No; Counseling Given: Not Answered PHQ-2 Answer Date Recorded PHQ-2 Total 0 04/22/2024 Sex and Gender Information Value Date Recorded Sex Assigned at Not on file Gender Identity Not on file Sexual Orientation Not on file Job Start Date Occupation Industry Not on file Not on file Not on file documented as of this encounter Last Filed Vital Signs Vital Sign Reading Time Taken Comments Blood Pressure 132/80 04/22/2024 2:31 PM CDT Pulse 87 04/22/2024 2:28 PM CDT Temperature 36.7 ??C (98 ??F) 04/22/2024 2:28 PM CDT Respiratory Rate 16 04/22/2024 2:28 PM CDT Oxygen Saturation 95% 04/22/2024 2:28 PM CDT Inhaled Oxygen Concentration - - Weight 128.7 kg (283 lb 11.7 oz) 04/22/2024 2:28 PM CDT Height - - Body Mass Index - - documented in this encounter Progress Notes * Mike Mantilla APRN, CNP - 04/22/2024 2:00 PM CDT S: Ariana Ricardo is a 64 year old female who presents for evaluation of ears. [facility] told her to have her ears flushes out. She has some itching in the ears, but states she always does. She denies ear pain. Has experienced decreased hearing, thus the reason for audiology appt. Pertinent review of systems done described in HPI. O: Blood pressure 132/80, pulse 87, temperature 36.7 ??C (98 ??F), temperature source Oral, resp. rate 16, weight 283 lb 11.7 oz (128.7 kg), SpO2 95%. General: patient is alert and in no acute distress Skin: color pink, skin warm and dry. There are no rashes or lesions noted Head: normocephalic Ears: EAC clear bilaterally, the left TM is clear, the right TM has a small amount of cerumen around the periphery of the ear canal (H61.20) Cerumen in auditory canal on examination (primary encounter diagnosis) PLAN: Ear lavage done Cerumen was removed, the TMs are clear bilaterally and intact Recheck as needed documented in this encounter Miscellaneous Notes * Clinical Note - Kelsey Basurto RN - 04/22/2024 2:00 PM CDT Rinsing (irrigation) of patient's bilateral ear canal performed using warm tap water. Patient tolerated with no complaints of discomfort, vertigo, or deafness. Ear drums visualized. Provider to evaluate after wash. * Addendum Note - Mike Mantilla APRN, CNP - 04/22/2024 2:00 PM CDT Addended by: MIKE MANTILLA on: 04/22/2024 03:18 PM Modules accepted: Orders documented in this encounter Plan of Treatment Not on file documented as of this encounter Procedures Procedure Name Priority Date/Time Associated Diagnosis Comments REMOVAL IMPACTED CERUMEN IRRIGATION/LVG UNILAT Routine 04/22/2024 3:18 PM CDT Cerumen in auditory canal on examination documented in this encounter Visit Diagnoses Diagnosis Cerumen in auditory canal on examination- Primary documented in this encounter Historical Medications * This list may reflect changes made after this encounter. Medication Sig Dispensed Refills Start Date End Date valsartan-hydroCHLOROthia zide (Diovan HCT) 320-25 MG oral tablet Take 1 Tablet by mouth one time a day. 03/31/2024 Ozempic, 1 MG/DOSE, 4 MG/3ML solution pen-injector ADMINISTER 1 MG UNDER THE SKIN EVERY WEEK 04/01/2024 montelukast (Singulair) 10 MG tablet Take 10 mg by mouth one time a day. methotrexate 2.5 MG tablet TAKE 8 TABLETS BY MOUTH EVERY WEEK metFORMIN-XR (Glucophage-XR) 500 MG 24 hour tablet 04/16/2024 folic acid 1 MG tablet Take 1 mg by mouth one time a day. Wixela Inhub 250-50 MCG/ACT aerosol powder, breath activated Inhale 1 Puff into the lungs two times a day. fluocinonide (Lidex) 0.05 % solution Apply topically two times a day. 10/21/2016 DULoxetine (Cymbalta) 60 MG delayed release capsule Take 60 mg by mouth one time a day. 03/24/2024 clindamycin (Cleocin) 300 MG capsule Take 3 pills 1 hour before dental work 05/15/2018 buPROPion XL (Wellbutrin XL) 300 MG 24 hour extended release tablet Take 300 mg by mouth every morning. buPROPion XL (Wellbutrin XL) 150 MG 24 hour extended release tablet Take 150 mg by mouth every morning. 03/01/2024 augmented betamethasone dipropionate (Diprolene) 0.05 % ointment Apply topically. 10/23/2017 albuterol HFA (Proair HFA, Ventolin HFA) 108 (90 Base) MCG/ACT inhalation aerosol Inhale 1-2 Puffs into the lungs every four hours as needed. 12/18/2018 added in this encounter Orders Procedures Count Last Ordered Date First Orde red Date REMOVAL IMPACTED CERUMEN IRR IGATION/LVG UNILAT 1 04/22/2024 documented in this encounter
--- OUTSIDE RECORDS SUMMARY | 2024-06-23 08:19 | XMS_ITS | Clinical Summary ---
Author Organization [facility] Address [address] [address] Phone Care Team Providers Care Manager Emergency Name Role Phone Unavailable Primary Care Provider Unavailabl e Allergies Active Allergy Reactions Criticality Noted Date Comments Jaspreet Inhibitors Cough Low 04/22/2024 Penicillins RASH Medium 04/22/2024 Medications Medication Sig Dispensed Refills Start Date End Date Status albuterol HFA (Proair HFA, Ventolin HFA) 108 (90 Base) MCG/ACT inhalation aerosol Inhale 1-2 Puffs into the lungs every four hours as needed. 12/18/2018 Active augmented betamethasone dipropionate (Diprolene) 0.05 % ointment Apply topically. 10/23/2017 Active buPROPion XL (Wellbutrin XL) 150 MG 24 hour extended release tablet Take 150 mg by mouth every morning. 03/01/2024 Active buPROPion XL (Wellbutrin XL) 300 MG 24 hour extended release tablet Take 300 mg by mouth every morning. Active clindamycin (Cleocin) 300 MG capsule Take 3 pills 1 hour before dental work 05/15/2018 Active DULoxetine (Cymbalta) 60 MG delayed release capsule Take 60 mg by mouth one time a day. 03/24/2024 Active fluocinonide (Lidex) 0.05 % solution Apply topically two times a day. 10/21/2016 Active Wixela Inhub 250-50 MCG/ACT aerosol powder, breath activated Inhale 1 Puff into the lungs two times a day. Active folic acid 1 MG tablet Take 1 mg by mouth one time a day. Active metFORMIN-XR (Glucophage-XR) 500 MG 24 hour tablet 04/16/2024 Active methotrexate 2.5 MG tablet TAKE 8 TABLETS BY MOUTH EVERY WEEK Active montelukast (Singulair) 10 MG tablet Take 10 mg by mouth one time a day. Active Ozempic, 1 MG/DOSE, 4 MG/3ML solution pen-injector ADMINISTER 1 MG UNDER THE SKIN EVERY WEEK 04/01/2024 Active valsartan-hydroCHLOROt hiazide (Diovan HCT) 320-25 MG oral tablet Take 1 Tablet by mouth one time a day. 03/31/2024 Active Active Problems No known active problems Encounters Date Type Department Care Team Description 04/22/2024 2:00 PM CDT Office Visit [facility] [address] [place], [place] [id number] Beatriz Mantilla, JEWEL HOLE GAUGER, WASTEWATER ANALYST Cerumen in auditory canal on examination (Primary Dx) 04/22/2024 Travel from Last 3 Months Social History Tobacco Use Types Packs/Day Years [...] file Not on file Not on file Obstetrics History Last Filed [...] - - Body Mass Index - - Plan of Treatment Health Maintenance Due Date Last Done Comments CT Colonography 1962 Cervical Cancer Screening 1962 Cologuard 1962 Colonoscopy 1962 Colorectal Cancer Screening 1962 FIT/FOBT 1962 Last pap w/ HPV Testing 1962 Last pap w/o HPV Testing 1962 MAMMO,SCREEN 1962 Sigmoidoscopy 1962 Pneumococcal/PCV20 Vaccine: Pediatrics (2-5 yrs) and At-Risk Patients (6-64 yrs) (Standing Order) (1 of 2 - PCV) 02/08/1968 PERTUSSIS (Standing Order) 1981 TETANUS (Standing Order) 1981 Shingrix (Zoster recombinant ) vaccine (Standing Order) (1 of 2) 02/08/2012 RSV Vaccination (60+ yrs) (Abrysvo/Arexvy) (1 - 1-dose 60+ series) 2022 Influenza Vaccine Seasonal (Standing Order) (#1) 2024 HPV Vaccine (Standing Order) Aged Out No longer eligible based on patient's age to complete this topic Hepatitis B Vaccine (Standin g Order) Aged Out No longer eligible b ased on patient's age to complete this topic Procedures Procedure Name Priority Date/Time Associated Diagnosis Comments REMOVAL IMPACTED CERUMEN IRRIGATION/LVG UNILAT Routine 04/22/2024 3:18 PM CDT Cerumen in auditory canal on examination from Last 3 Months Ariana Ricardo Personal/Family Self 1960 [address] [id number]
--- OUTSIDE RECORDS SUMMARY | 2024-06-23 08:19 | XMS_ITS | Encounter Summary ---
Author Organization [facility] Address [address] [address] Phone Care Team Providers Care Horticulture Superintendent Name Role Phone Unavailable Primary Care Provider Unavailabl e Encounter Details Date Type Department Care Team (Latest Contact Info) Description 04/22/2024 Travel Social History Tobacco Use Types Packs/Day Years Used Date Smoking Tobacco: Every Day Cigarettes Smokeless Tobacco: Never PHQ-2 Answer Date Recorded PHQ-2 Total 0 04/22/2024 Sex and Gender Information Value Date Recorded Sex Assigned at Not on file Gender Identity Not on file Sexual Orientation Not on file Job Start Date Occupation Industry Not on file Not on file Not on file documented as of this encounter Plan of Treatment Not on file documented as of this encounter Visit Diagnoses Not on filedocumented in this encounter
--- OUTSIDE RECORDS SUMMARY | 2024-06-23 08:19 | XMS_ITS | Clinical Summary ---
Author Organization [facility] Address [place], [place] [address] Care Team Providers Care Cotton Weigher Name Role Phone Keyur Dial MD Primary [...] rhinitis, unspecified seasonality, unspecified trigger Inhale 1 [place] into both nostrils once daily. 16.9 g [...] T Respiratory Rate 14 11/11/2017 11:57 AM COMMUNITY DEVELOPMENT WORKER Oxygen Saturation 93% 11/05/2017 12:00 PM COMMUNITY DEVELOPMENT WORKER Inhaled Oxygen Concentration - - Weight 131 [...] 03/28/2025 , 03/28/2022, 05/15/2015 (Completed outside of [facility]), Additional history exists Tdap Completed 10/17/2011 Pneumococcal series for age 6-64 Aged Out 10/17/2016, 09/15/2012 No longer eligibl e based on patient's age to complete this topic Goals Goal Patient Goal Type Associated Problems Recent Progress Patient-Stated? Author BLOOD PRESSURE - MAINTAINS BP less than 140/90 Blood Pressure Keyur Wheeler MD Medical Devices Implanted Type Area Master Police Detective Device Identifier Shelf Expiration Date Model / Serial / Lot Triathlon Tibial Component Implanted:Qty: 1 on 05/31/2016 by Mamadou Michelle MD at [facility] Right: Knee [employer] 04/30/2021 / / [id number] Triathlon Posterior Stabilized Femoral Implanted:Qty: 1 on 05/31/2016 by Mmaadou Michelle MD at [facility] Right: Knee [employer] 04/04/2021 / / [id number] Triathlon Symmetric Patella Implanted:Qty: 1 on 05/31/2016 by Mamadou Michelle MD at [facility] Right: Knee [employer] 04/22/2021 / / [id number] Triathlon Tibial Bearing Insert Implanted:Qty: 1 on 05/31/2016 by Mamadou Michelle MD at [facility] Right: Knee [employer] 01/25/2020 / / [id number] Triathlon Tibial Component Implanted:Qty: 1 on 05/31/2016 by Mamadou Michelle MD at [facility] Left: Knee [employer] 04/30/2021 / / [id number] Triathlon Posterior Stabilized Femoral Implanted:Qty: 1 on 05/31/2016 by Mamadou Michelle MD at [facility] Left: Knee [employer] 04/07/2021 / / [id number] Triathlon Symmetric Patella Implanted:Qty: 1 on 05/31/2016 by Mamadou Michelle MD at [facility] Left: Knee [employer] 02/06/2021 / / [id number] Triathlon Tibial Bearing Insert Implanted:Qty: 1 on 05/31/2016 by Mamadou Michelle MD at [facility] Left: Knee [employer] 09/17/2020 / / [id number] Procedures Procedure Name Priority Date/Time Associated Diagnosis Comments XR MAMMO TIFFANIE BILAT SCREEN Routine 12/27/2022 11:34 AM COMMUNITY DEVELOPMENT WORKER Encounter for screening mammogram for malignant neoplasm of breast UNDERWRITING DIRECTOR THIN PREP PAP SCREEN IMAGED Routine 03/28/2022 9:57 AM CDT COLONOSCOPY 11/05/2017 10:04 AM COMMUNITY DEVELOPMENT WORKER LIPID PANEL W REFLEX MEASURED LDL Routine 05/21/2016 2:07 PM CDT Hypertension from Last 3 Months or Most Recently Relevant to Health Maintenance Results * XR MAMMO TIFFANIE BILAT SCREEN (12/27/2022 11:34 AM COMMUNITY DEVELOPMENT WORKER) Anatomical Region Laterality Modality BREASTS, Breast Left, Breast Right Bilateral Mammography Impressions 12/27/2022 11:57 AM COMMUNITY DEVELOPMENT WORKER ??There is no radiographic evidence for malignancy. ??Recommend annual mammograms. MAMMOGRAM ASSESSMENT: ??ACR 2 Benign PATIENTS: You will also receive a letter with your examination results in an easy to read format. ??If you have questions about your results, please contact your referring provider. Narrative 12/27/2022 11:57 AM COMMUNITY DEVELOPMENT WORKER For Patients: As a result of the Century Cures Act, medical imaging exams and procedure reports are released immediately into your electronic medical record. You may view this report before your referring provider. If you have questions, please contact your health care provider. XR MAMMO TIFFANIE BILAT SCREEN [[id number]] CLINICAL HISTORY: ??This is an asymptomatic 62 [...] appearing mass(es). Keyur Dial MD MAMMO * UNDERWRITING DIRECTOR THIN PREP PAP SCREEN IMAGED (03/28/2022 9:57 AM CDT) Case Report Gynecologic Cytology Report ? Case: [id number] ? Authorizing Provider: ??Keyur Dial MD ??Collected: ? 03/28/2022 0957 ? Ordering Location: ? [facility] ?Received: ?03/29/2022 0845 ? First Screen: ?Madisyn Simms ? Specimen: ?UNDERWRITING DIRECTOR ThinPrep Vial Screening, Cervical/Vaginal ? 04/11/2022 1:56 PM CDT [facility] INTERPRETATION/ RESULT NEGATIVE FOR INTRAEPITHELIAL LESION OR MALIGNANCY (NIL) (none) 04/11/2022 1:56 PM CDT [facility] IMEN ADEQUACY Satisfactory for evaluation Endocervical component present 04/11/2022 1:56 PM CDT [facility] HPV REQUEST HPV and PAP 04/11/2022 1:56 PM CDT [facility] Date of LMP 04/11/2022 1:56 PM CDT [facility] Comment:Unknown Post menopau cortney Additional Information 04/11/2022 1:56 PM CDT [facility] Comment: Interpreted at [facility] Central Laboratory - [address], [place] [address] Automated Review Successful 04/11/2022 1:56 PM CDT [facility] Comment:Specimen processed s uccessfully by automated geography head device, ThinPrep Imaging System, [employer] ANCILLARY TESTING UNDERWRITING DIRECTOR HPV Ordered, Please see separate report 04/11/2022 1:56 PM CDT [facility] Note The pap test is a [...] and malignant lesions. 04/11/2022 1:56 PM CDT [facility] Other (Cervical/Vagina l) 03/28/2022 9:57 AM CDT 03/29/2022 8:45 AM CDT Keyur Dial MD PATHOLOGY/CYTOLO GY [facility] [address] [place] [address], [place] * COLONOSCOPY (11/05/2017 10:04 AM COMMUNITY DEVELOPMENT WORKER) 11/05/2017 10:0 4 AM COMMUNITY DEVELOPMENT WORKER Narrative Transcriptions Alonzo Bianchi MD - 11/05/2017 [...] - 199 mg/dL 05/21/2016 3:26 PM CDT [facility] TRIGLYCERIDES 149 <150 mg/dL 05/21/2016 3:26 PM CDT [facility] HDL CHOLESTEROL 47 >40 mg/dL 05/21/2016 3:26 PM CDT [facility] NON-HDL CHOLESTEROL 210(H) <145 mg/dl 05/21/2016 3:26 PM CDT [facility] CHOL/HDL RATIO 5.47(H) <4.50 05/21/2016 3:26 PM CDT [facility] LDL CHOLESTEROL 180(H) <=130 mg/dL 05/21/2016 3:26 PM CDT [facility] PATIENT STATUS NOT GIVEN 05/21/2016 3:26 PM CDT [facility] Blood BLOOD SPECIMEN / Unknown Venipuncture / Unknown 05/21/2016 2:07 PM CDT 05/21/2016 2:07 PM CDT Keyur Dial MD CHEMISTRY [facility] [address] [place] [address] [facility] [address] [place] [address], [place] [phone] from Last 3 Months or Most Recently Relevant to Health Maintenance Advance Directives * Full Code (Latest Code Status on File) Date Activated Date Inactivated Comments 05/31/2016 4:44 PM 06/03/2016 5:33 PM * Full Code Date Activated Date Inactivated Comments 05/31/2016 10:39 AM 05/31/2016 4:44 PM Care Teams Cotton Weigher Relationship Specialty Start Date End Date Keyur Dial MD [address] [place] [address] PCP - General 02/24/06
== END 2024-06-23 08:17 | disposition home or self-care (01) ==
PROVIDERS: PCP Family Medicine; Visit Provider Family Medicine
DX: Z12.31 Encounter for screening mammogram for malignant neoplasm of breast (principal)
CPT/HCPCS: 77063; 77067

== ENCOUNTER 2025-05-18 09:01 | Inpatient (IN) | payer OTHER, SELFPAY ==
[2025-05-17] VITALS (29 sets, daily range): BP systolic 131–195; BP diastolic 69–94; PULSE 79–109; RESP 16–21; TEMP 36–37.1; O2SAT 87–97; BMI 46.5
[2025-05-17] MEDS: LACTATED RINGERS 1000 ML 1,000 ML 100 ML IV (08:45)
--- NOTE | 2025-05-17 08:49 | W.PM.H&PU ---
History & Physical Update History & Physical Update H&P Reviewed and patient assessed: No changes noted
[2025-05-17] MEDS: CLINDAMYCIN 900 MG/50 ML-D5W IVPB (09:19)
--- NOTE | 2025-05-17 09:24 | SUR.OPER ---
PATIENT QUESTIONS ANSWERED SATISFACTORILY PREOPERATIVELY. PATIENT BROUGHT TO OR #1 PER CART. Patient positioned supine on OR #1 bed. The perioperative team supported arms bilaterally on arm boards. Final approval of positioning by surgeon.
[2025-05-17] MEDS: BUPIVACAINE 0.25% 30 ML 20 ML INJECTION (09:25)
--- NOTE | 2025-05-17 10:25 | CRLHL7_ITS ---
For Patients: As a result of the Century Cures Act, medical imaging exams and procedure reports are released immediately into your electronic medical record. You may view this report before your referring provider. If you have questions, please contact your health care provider. Indication: Intra op Technique: Intraoperative images of the abdomen were obtained. Comparison: None. Findings: A total of 3 intraoperative images of the abdomen for cholangiogram were obtained. Radiologist was not present for the procedure. See GI ERCP note for findings. Total fluoroscopy time of 104 seconds. Impression: Intraoperative radiographs for cholangiogram were obtained. Dictated by Karoline Love MD @ 05/19/2025 3:24:12 PM (Electronically Signed)
--- NOTE | 2025-05-17 12:26 | P.ANES_ITS ---
Anesthesia Charges Start Date/Time Anesthesia Start Date: 05/17/25 Anesthesia Start Time: 09:00 Stop Date/Time Anesthesia Stop Date: 05/17/25 Anesthesia Stop Time: 12:36 Coding CPT Codes CPT Codes: ANESTH SURG UPPER ABDOMEN - 13503 ([id number]) P3 - PATIENT W/SEVERE SYS DISEASE, QK - CPC 2-4 CNCRNT ANES PROC, QX - TEASELER SVC W/ MD MED DIRECTION
--- NOTE | 2025-05-17 12:26 | W.ANESCHARGE ---
Anesthesia Charges Start Date/Time Anesthesia Start Date: 05/17/25 Anesthesia Start Time: 09:00 Stop Date/Time Anesthesia Stop Date: 05/17/25 Anesthesia Stop Time: 12:36 Coding CPT Codes CPT Codes: ANESTH SURG UPPER ABDOMEN - 31274 ([id number]) P3 - PATIENT W/SEVERE SYS DISEASE, QK - TOUR NARRATOR 2-4 CNCRNT ANES PROC, QX - ASBESTOS SHINGLE INSPECTOR SVC W/ MD MED DIRECTION
--- NOTE | 2025-05-17 12:29 | P.GSOP_ITS ---
Operative Note Date of procedure: 05/17/25 Pre-op diagnosis: Biliary colic Post-op diagnosis: Acute and chronic cholecystitis Type of Procedure: Laparoscopic cholecystectomy with intraoperative cholangiogram Indications: Patient is a 65-year-old female with recent hospitalization for acute cholecystitis. Her gallbladder was not removed at that time. She has had persistent symptoms. Risks and benefits of operative intervention were discussed at length with the patient. Risks included but was not limited to: Bleeding, infection, risk of damage to surrounding structures, possible need for additional procedures, possible need to convert to an open operation and postoperative complications such as pneumonia, pulmonary emboli or ME. All questions and concerns were addressed with the patient agreeing to proceed. Procedure Description: After discussing the risks and benefits of the procedure, the patient signed informed consent.? The operative site was marked and the patient was brought to the operating room and placed on the operating table in supine position.? Care was taken to pad the patient's pressure points.?? The patient was then intubated by anesthesia.?? The operative site was then prepped and draped in the usual sterile fashion.? A time-out was then performed. Entrance to the abdomen was gained via a 5 mm Visiport in the left upper quadrant. The abdomen was insufflated and briefly surveyed for signs of injury. There was none. 11 mm umbilical port was placed as well as 2 working ports along the right costal margin. Patient was then placed in reverse Trendelenburg position with the right side up. The gallbladder was distended and encased in omentum. The omentum was bluntly dissected down and off of the gallbladder. The fundus was erythematous and edematous. It was able to be grasped and retracted cephalad. The infundibulum was grasped. Tissues were very thick, woody and edematous, making dissection difficult. A thick rind encased the entire gallbladder. A combination of hook cautery and blunt dissection was used to carefully dissect out the gallbladder. Calot's node was identified. The vascular pedicle was identified going to the node with 2 clips placed proximally and 1 distally before being transected. This allowed the node to be bluntly dissected away from the operative field. The cystic duct and artery were dissected with cautery and bluntly with the suction food and nutrition professor. Due to the chronic inflammation of the tissue during dissection a small tear on the posterior aspect of the cystic duct was created. A small amount of sludge and stones were spilled. I decided to then perform an intraoperative cholangiogram, in order to determine the anatomy of the biliary system and rule out a possible common bile duct injury. An incision was made on the anterior aspect of the gallbladder infundibulum. The cholangiogram catheter was brought into the operative field and thread through the incision into the cystic duct. It was secured in place with a clamp. Saline was able to be instilled with no evidence of spillage. The C-arm was then brought onto the operative field. Using fluoroscopy the common bile duct was identified with contrast going into the duodenum. The right hepatic duct was also identified. The left hepatic duct was faintly visible, but difficult to identify due to the position of the patient. A small amount of dye spillage occurred through the injury to the cystic duct, but no evidence of injury to the common bile duct. The cystic duct was short. Two clips were then placed proximal on the cystic artery and 1 distally before being transected. The cystic duct had 3 clips applied proximally, which appeared to close the posterior cystic duct hole. The clips were placed at the level of the injury with one clip just below the tear. An 0 PDS suture was then applied below the placed clips. No evidence of bile leakage. The gallbladder was then dissected off the gallbladder fossa. This portion of the procedure was difficult due to the chronic inflammation. Purulence was apparent within the gallbladder and the posterior wall was necrotic. It was removed with a portion of the posterior wall still adherent to the gallbladder fossa. This was thoroughly cauterized and irrigated. The gallbladder was then placed into the Endo-Catch bag and removed from the abdomen. It was passed off to be sent to pathology. The gallbladder bed was surveyed for hemostasis. A significant amount of irrigation was performed. All small stones that were visualized were removed. A 15 [place] drain was placed in the gallbladder fossa through the right upper quadrant port. It was secured in place with a 2-0 nylon suture. The umbilical port fascia was closed with 0 Vicryl via the Jose-Deanna. All the ports were removed under direct visualization. Additional local anesthetic was applied to each port site. The skin was closed with absorbable subcuticular suture. Instrument sponge and needle counts were correct at the end of the case. The patient was then woken and transferred to the PACU in stable condition. Sterile dressings were then applied. ? The patient was then woken and transported to the recovery area in stable condition. ? The patient tolerated the procedure well. Findings: Acute and chronic inflammation of the gallbladder. Modifier 22 applied to case due to difficulty with dissection of chronically inflamed tissues and purulence of the gallbladder. Anesthesia: GETA Surgeon: Tyra West MD Estimated blood loss (mL): 25 Specimen: Gallbladder Condition: stable Disposition: PACU
--- NOTE | 2025-05-17 12:40 | P.ANES_ITS ---
Anesthesia Charges Start Date/Time Anesthesia Start Date: 05/17/25 Anesthesia Start Time: 09:00 Stop Date/Time Anesthesia Stop Date: 05/17/25 Anesthesia Stop Time: 12:36 Coding CPT Codes CPT Codes: ANESTH SURG UPPER ABDOMEN - 29812 ([id number]) P3 - PATIENT W/SEVERE SYS DISEASE, QK - FIRE MANAGEMENT OFFICER 2-4 CNCRNT ANES PROC, QX - INSURANCE PRODUCER SVC W/ MD MED DIRECTION
--- NOTE | 2025-05-17 12:40 | W.ANESCHARGE ---
Anesthesia Charges Start Date/Time Anesthesia Start Date: 05/17/25 Anesthesia Start Time: 09:00 Stop Date/Time Anesthesia Stop Date: 05/17/25 Anesthesia Stop Time: 12:36 Coding CPT Codes CPT Codes: ANESTH SURG UPPER ABDOMEN - 62840 ([id number]) P3 - PATIENT W/SEVERE SYS DISEASE, QK - CAR LOADER 2-4 CNCRNT ANES PROC, QX - LICENSED FUNERAL DIRECTOR AND EMBALMER SVC W/ MD MED DIRECTION
--- NOTE | 2025-05-17 15:16 | PM.IMCN1 ---
Date of Consult Consult date: 05/17/25 Primary Care Provider: Keyur Dial MD Consult Narrative Narrative: Ariana Ricardo is a 65 year old female with past medical history of morbid obesity, hypertension, diabetes type 2, moderate persistent asthma, psoriasis, CANDI and generalized anxiety disorder/ major depression who presents today for an elective laparoscopic cholecystectomy with Dr. West. Pt was hospitalized on 04/21/2025 to 04/25/2025 for abdominal pain and etiology of her pain remains undetermined and it is believed to be gallstones. Patient was seen at her primary care physician's office prior to surgery and was optimized for the operation. Patient is diabetes, hypertension and moderate persistent asthma are well controlled with medication. Hx of psoriasis on methotrexate. Patient's daughter mentioned that her mother had a recent echo a few weeks ago, when she was admitted at [facility] in the [place], and the indication for echo was because they noticed some congestion in her lungs at that time. He her echo report is the following: - Left ventricle: Hyperdynamic left ventricular systolic function with a visually estimated ejection fraction of greater than 70%. - Normal right ventricular size and function - No significant valvular heart disease - No pericardial effusion Review of Systems Status of ROS: Reports: 6 or more systems reviewed and unremarkable except as noted in History and below [facility] Medical History (Updated 05/17/25 @ 17:22 by Aziza Monteiro MD) Obstructive sleep apnea syndrome ?G47.33 - Obstructive sleep apnea (adult) (pediatric) (ICD-10) Age-related cataract of both eyes ?H25.9 - Unspecified age-related cataract (ICD-10) Hearing loss ?H91.90 - Unspecified hearing loss, unspecified ear (ICD-10) Type 2 diabetes mellitus, without long-term current use of insulin ?E11.9 - Type 2 diabetes mellitus without complications (ICD-10) MEKHI (generalized anxiety disorder) ?F41.1 - Generalized anxiety disorder (ICD-10) Major depression, recurrent ?F33.9 - Major depressive disorder, recurrent, unspecified (ICD-10) Primary hypertension ?I10 - Essential (primary) hypertension (ICD-10) Adenomatous colon polyp (11/05/17) ?D12.6 - Benign neoplasm of colon, unspecified (ICD-10) Moderate persistent asthma ?J45.40 - Moderate persistent asthma, uncomplicated (ICD-10) Allergic rhinitis ?J30.9 - Allergic rhinitis, unspecified (ICD-10) Psoriasis ?L40.9 - Psoriasis, unspecified (ICD-10) Obstructive sleep apnea syndrome ?G47.33 - Obstructive sleep apnea (adult) (pediatric) (ICD-10) Morbid obesity ?E66.01 - Morbid (severe) obesity due to excess calories (ICD-10) History of colonic polyps (11/05/17) ?Z86.010 - Personal history of colonic polyps (ICD-10) Allergic conjunctivitis ?H10.10 - Acute atopic conjunctivitis, unspecified eye (ICD-10) Surgical History (Updated 05/17/25 @ 15:25 by Aziza Monteiro MD) History of dilatation and curettage (12/16/23) ?Z98.890 - Other specified postprocedural states (ICD-10) History of 2 sections ?Z98.891 - History of uterine scar from previous surgery (ICD-10) History of sebaceous cyst ?Z87.2 - Personal history of diseases of the skin and subcutaneous tissue (ICD-10) Status post knee replacement (05/31/16) ?Z96.659 - Presence of unspecified artificial knee joint (ICD-10) History of colonoscopy with polypectomy (04/03/23) ?Z98.890 - Other specified postprocedural states (ICD-10) ?Z86.010 - Personal history of colonic polyps (ICD-10) Family History Father Colon cancer, Onset Age: 49 Mother Depression Uncle Heart disease Social History (Updated 06/16/24 @ 12:51 by Dawn Valladares ~ RMA, RMA) Narrative: -Tigre, 2 kids, school psychologist 1 ppd smoker Rare EtOH What is your current living situation?: I presently have a place to live Problems where you live: no known problems In the past 12 months, utilities in danger of being shut off: no In past 12 months, lack of transportation kept you from medical appts, meetings, work, or getting things needed for daily living: no In the past 12 mos, have been you worried that your food would run out before you had money to buy more?: never true In the past 12 mos, the food you bought just didn't last and you didn't have money to buy more?: never true Smoking Status: Former smoker Do you use any of these nicotine containing products: None How often do you have a drink containing alcohol: never AUDIT-C Alcohol total score: 0 Non-prescribed substance use: denies use Caffeine: Yes (arturo savage) How often does anyone, including family, friends and others, physically hurt you: never How often does anyone, including family, friends and others, insult or talk down to you: never How often does anyone, including family, friends and others, threaten you with harm: never How often does anyone, including family, friends and others, scream or curse at you: never Are you using contraception or practicing any form of control: No Meds Home Medications and Allergies Home Medications ?Medication ?Instructions ?Recorded ?Confirmed ?Type multivitamin 1 tab PO DAILY 12/16/22 05/17/25 History albuterol sulfate 90 mcg/actuation 2 puff inhalation DAILY PRN 12/18/22 05/17/25 History aerosol inhaler olopatadine 0.1 % eye drops 1 drp ophthalmic (eye) BID PRN 12/18/22 05/17/25 History fluticasone 250 mcg-salmeterol 50 1 inh inhalation BID #180 ea 12/07/24 05/17/25 Rx mcg/dose blistr powdr for inhalation (Advair Diskus) methotrexate sodium 2.5 mg tablet 20 mg (8 x 2.5 mg) PO QWEEK #96 01/27/25 05/17/25 Rx tabs semaglutide 2 mg/dose (8 mg/3 mL) 2 mg (0.75 mL) subcut QWEEK #3 mL 02/04/25 05/17/25 Rx subcutaneous pen injector Held on 05/17/25. Instructions: until lap laura completed bupropion HCl 150 mg 24 hr tablet, 150 mg PO QAM #90 tabs 02/14/25 05/17/25 Rx extended release bupropion HCl 300 mg 24 hr tablet, 300 mg PO QAM #90 tabs 02/14/25 05/17/25 Rx extended release (Wellbutrin XL) furosemide 20 mg tablet 20 mg PO DAILY PRN 05/04/25 05/17/25 History clindamycin HCl 150 mg capsule 600 mg PO ONCE PRN 05/17/25 05/17/25 History diltiazem HCl 120 mg 120 mg PO DAILY 05/17/25 05/17/25 History capsule,extended release 24 hr duloxetine 30 mg capsule,delayed 30 mg PO DAILY 05/17/25 05/17/25 History release duloxetine 60 mg capsule,delayed 60 mg PO DAILY 05/17/25 05/17/25 History release folic acid 1 mg tablet 1 mg PO DAILY 05/17/25 05/17/25 History metformin 500 mg tablet,extended 500 mg PO DAILY 05/17/25 05/17/25 History release 24 hr montelukast 10 mg tablet 10 mg PO DAILY 05/17/25 05/17/25 History valsartan 320 1 tab PO DAILY 05/17/25 05/17/25 History mg-hydrochlorothiazide 25 mg tablet Allergies Allergy/AdvReac Type Severity Reaction Status Date / Time Penicillins Allergy Intermediate Rash Verified 05/17/25 07:54 CLARE Inhibitors AdvReac Intermediate Cough Verified 05/17/25 07:54 Exam Narrative: Exam Narrative: Physical exam GENERAL: Obese, no acute distress. HEAD AND NECK: Atraumatic, normocephalic CARDIOVASCULAR: RRR. Normal S1, S2. No murmurs. RESPIRATORY: Clear to auscultation B/L. Good air entry B/L. No wheezes or rhonchi. GASTROINTESTINAL: Mild tenderness upper right quadrant, clean dressing. NEUROLOGY: Alert, awake, oriented X 3. Normal speech. PSYCH: Normal mood, normal affect. Const: Vital Signs, click to edit/add: Vital Signs - 24 hr 05/17/25 08:19 05/17/25 12:31 05/17/25 12:36 Temperature 98.1 F 98.6 F Pulse Rate 79 98 98 Respiratory Rate 16 20 21 Blood Pressure 139/75 192/89 H 195/89 H Pulse Oximetry 95 90 94 Oxygen Delivery Me thod Room Air Nasal Cannula Oxygen Flow Rate 3 05/17/25 12:40 05/17/25 12:45 05/17/25 12:50 Temperature Pulse Rate 92 91 90 Respiratory Rate 20 21 20 Blood Pressure 187/77 H 178/72 H 180/83 H Pulse Oximetry 97 96 95 Oxygen Delivery Me thod Oxygen Flow Rate 05/17/25 12:55 05/17/25 13:00 05/17/25 13:05 Temperature Pulse Rate 95 93 96 Respiratory Rate 20 20 18 Blood Pressure 167/76 H 170/73 H 163/81 H Pulse Oximetry 95 92 90 Oxygen Delivery Me thod Room Air Room Air Oxygen Flow Rate 05/17/25 13:10 05/17/25 13:15 05/17/25 13:20 Temperature 97.9 F Pulse Rate 94 92 94 Respiratory Rate 18 18 18 Blood Pressure 174/78 H 150/69 H 154/82 H Pulse Oximetry 92 91 93 Oxygen Delivery Me thod Room Air Oxygen Flow Rate 05/17/25 13:33 05/17/25 13:45 05/17/25 14:00 Temperature 97.5 F L Pulse Rate 93 86 89 Respiratory Rate 18 18 16 Blood Pressure 131/77 137/90 H 154/77 H Pulse Oximetry 92 91 91 Oxygen Delivery Me thod Room Air Room Air Room Air Oxygen Flow Rate 05/17/25 14:15 05/17/25 14:30 05/17/25 14:39 Temperature Pulse Rate 91 97 Respiratory Rate 16 16 18 Blood Pressure 150/73 H 162/80 H Pulse Oximetry 90 92 92 Oxygen Delivery Me thod Room Air Room Air Room Air Oxygen Flow Rate Assessment and Plan Assessment and plan (1) Status post laparoscopic cholecystectomy: Problem comment: on 05/17/25 w/ Dr West Status: Acute (2) Cholelithiasis: Problem comment: As above Status: Acute (3) H/O echocardiogram: Problem comment: Patient's daughter mentioned that her mother had a recent echo a few weeks ago, when she was admitted at [facility] in the [place], and the indication for echo was because they noticed some congestion in her lungs at that time. He her echo report is the following: - Left ventricle: Hyperdynamic left ventricular systolic function with a visually estimated ejection fraction of greater than 70%. - Normal right ventricular size and function - No significant valvular heart disease - No pericardial effusion Status: Acute (4) Type 2 diabetes mellitus, without long-term current use of insulin: Problem comment: Ordered insulin sliding scale during her stay at the hospital. A1c 6.5, was tested this month. Under good control with semaglutide 2 mg weekly and metformin ER 500 mg daily. Status: Chronic (5) Primary hypertension: Problem comment: Stable on valsartan/hydrochlorothiazide 320/25 daily and diltiazem CD 1 120 mg daily. Diltiazem 120 mg at p.m. was prescribed recently by [facility] at [facility]. Status: Chronic (6) Moderate persistent asthma: Problem comment: Continue Advair 250/50 one puff twice daily, singular 10 mg daily, albuterol as needed. Status: Chronic (7) Psoriasis: Problem comment: On methotrexate Status: Chronic (8) Obstructive sleep apnea syndrome: Status: Chronic (9) Morbid obesity: Status: Chronic (10) MEKHI (generalized anxiety disorder): Problem comment: Stable on Wellbutrin XL 450 mg daily and duloxetine 90 mg daily. Status: Chronic (11) Major depression, recurrent: Problem comment: Stable on Wellbutrin XL 450 mg daily and duloxetine 90 mg daily. Status: Chronic Total Time Spent Total Time Spent: Time spent: Today I spent 75 minutes seeing the patient, discussing the patient with ER staff, reviewing Expanse and EPIC notes/diagnostics, discussing the care plan with our care time that includes social work, PT/OT, pharmacy, RT, custodial and documenting my impressions and plan in the medical record.
--- NOTE | 2025-05-17 19:37 | CRLHL7_ITS ---
For Patients: As a result of the Cures Act, medical imaging exams and procedure reports are released immediately into your electronic medical record. You may view this report before your referring provider. If you have questions, please contact your health care provider. INDICATION: Left weakness and paresthesia. TECHNIQUE: CT head without contrast. COMPARISON: None. FINDINGS: No mass effect or midline shift. No hydrocephalus. Mild ill-defined low-attenuation in the periventricular and subcortical white matter. Remote lacunar infarct or dilated perivascular space in the left basal ganglia. No CT evidence of acute hemorrhage or infarction. No abnormal extra-axial fluid collection. Intracranial atherosclerosis. Bone windows show no acute calvarial fracture. Chronic right maxillary sinusitis. Orbits as imaged are unremarkable. IMPRESSION: 1. No acute intracranial abnormality. 2. Mild changes of chronic small vessel ischemic disease with remote lacunar infarct or dilated perivascular space in the left basal ganglia. 3. Chronic right maxillary sinusitis. Dictated by Chaz Shultz MD @ 05/17/2025 8:38:06 PM Please note that all CT scans at this facility use dose modulation, iterative reconstruction, and/or weight-based dosing when appropriate to reduce radiation dose to as low as reasonably achievable. Dictated by: Chaz Shultz MD @ 05/17/2025 20:38:17 (Electronically Signed)
--- NOTE | 2025-05-17 19:54 | CRLHL7_ITS ---
For Patients: As a result of the Century Cures Act, medical imaging exams and procedure reports are released immediately into your electronic medical record. You may view this report before your referring provider. If you have questions, please contact your health care provider. INDICATION: Acute stroke, left upper extremity weakness. TECHNIQUE: CTA neck with contrast bolus tracking, 3D angiographic rendering using maximum intensity projection (MIP) and images permanently archived. FINDINGS: There is atherosclerotic plaque at the right carotid bifurcation with a severe stenosis at the distal common/proximal internal carotid artery, 95 percent by NASCET. The left carotid system is completely occluded. There is no significant vertebral artery stenosis or dissection. The soft tissues of the neck are within normal limits. Advanced degenerative changes are noted in the cervical spine. IMPRESSION: 1. Severe right carotid stenosis, 95 percent by NASCET. 2. Complete left carotid occlusion. Please note that all CT scans at this facility use dose modulation, iterative reconstruction, and/or weight-based dosing when appropriate to reduce radiation dose to as low as reasonably achievable. Dictated by Julio Cesar Arboleda MD @ 05/18/2025 7:39:33 AM (Electronically Signed)
--- NOTE | 2025-05-17 19:54 | CRLHL7_ITS ---
For Patients: As a result of the Century Cures Act, medical imaging exams and procedure reports are released immediately into your electronic medical record. You may view this report before your referring provider. If you have questions, please contact your health care provider. INDICATION: Acute stroke. TECHNIQUE: CTA head with contrast bolus tracking, 3D angiographic rendering using maximum intensity projection (MIP) and images permanently archived. FINDINGS: The left carotid artery is occluded proximally; it fills via the posterior communicating artery. Proximal left MCA branches fill normally. There is normal opacification of the intracranial right carotid and posterior circulation. No aneurysm is identified. The right maxillary sinus is nearly completely opacified. IMPRESSION: Proximal left carotid occlusion. Please note that all CT scans at this facility use dose modulation, iterative reconstruction, and/or weight-based dosing when appropriate to reduce radiation dose to as low as reasonably achievable. Dictated by Julio Cesar Arboleda MD @ 05/18/2025 7:37:15 AM (Electronically Signed)
--- NOTE | 2025-05-17 19:56 | PC.NURSE ---
End of shift [id number] - RN took over pt care at approximately 1500. Pt was observed to be sleeping upon RN taking over care. RN received report that pt was having difficulty finding words and was mildly disoriented following arrival from PACU. Pt and family alerted RN that pt when pt awoke she had decreased sensation in L arm from shoulder to finger tips. RN did bedside neuro check and pt was able to control L arm, pt reported decreased tactile sensation. No facial droop noted, L leg appeared to be similar in function, ability, and strength to R Leg. RN alerted MD, no orders given. Pt was observed to fall back asleep, when she awoke she wanted to use the bathroom. Pt observed to be unsteady on her feet, but able to ambulate with standby assistance. RN observed pt to have decreased function in L arm/hand. RN alerted MD of pt change in condition, orders given. Pt appears pleasant and cooperative, RN noted pt to be looking around the room with wide eyes. Denies pain, mata bulb patent. Given ice pack for improved comfort.
[2025-05-17 20:43] LABS: Creatinine, Point-of-Care* 1.2 mg/dl (0.6-1.3)
--- NOTE | 2025-05-17 20:44 | P.CCN_ITS ---
Subjective Subjective Interval history: Pt started to feel decreased sensation in her left upper extremity posto peratively. I examined the patient and she has Lt facial droop along with loss of sensation and reduced power of her left upper extremity compared to the right side. lower extremity examination was okay. last seen normal was difficult to assess as the patient had surgery and was under the effect of anesthesia postoperatively. we activated stroke code and sent the patient for CT head without contrast in addition to CTA head and neck with contrast. I talked to the neurologist Dr. Adaems, Who states that patient cannot get Tenecteplase with her recent surgery and that she will check the CT scan and the CTA is once they are pushed to [facility]. Assessment and Plan Assessment and plan (1) Suspected cerebrovascular accident: Problem comment: we activated stroke code and sent the patient for CT head without contrast in addition to CTA head and neck with contrast. I talked to the neurologist Dr. Adames, Who states that patient cannot get Tenecteplase with her recent surgery and that she will check the CT scan and the CTA is once they are pushed through the physical laboratory assistant to [facility]. Status: Acute
[2025-05-17] MEDS: HYDROCODONE-ACETAMIN 5-325 MG 1 TAB PO (21:25)
[2025-05-17] MEDS: DULOXETINE 30 MG CAPSULE DR 90 MG PO (22:25)
[2025-05-17] MEDS: MONTELUKAST 10 MG TABLET PO (22:25)
--- NOTE | 2025-05-17 22:26 | PM.DS1 ---
DS: Providers Provider Date Seen: 05/17/25 Primary care physician: Keyur Dial MD Consults: 05/17/25 13:58 Consult to Physician [CONS] Routine Comment: Consulting Provider: Jazmyne Ramirez Has provider been notified: Yes Attending Physician on discharge: MD Thania DS: Diagnosis Discharge Diagnosis (1) Suspected cerebrovascular accident: Status: Acute Problem details: We activated stroke code and sent the patient for CT head without contrast in addition to CTA head and neck with contrast. I talked to the neurologist Dr. Adames, Who states that patient cannot get Tenecteplase with her recent surgery and that she will check the CT scan and the CTA is once they are pushed through the assistant farm operations manager to [facility]. 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 Alarcon). Our general surgeon approved loading her with Plavix and aspirin. She states that they noticed that the gallbladder tissue was friable during the procedure & that she wants the drain to stay in for a week and for the patient to follow up at the surgery clinic office in 1 week. -permissive hypertension protocol. Will hold all of her blood pressure medications. - Frequent neurologic exam. Stat CT head if any deterioration in the neurological status of the patient. - control blood sugar, keep below 180. - DVT prophylaxis with SCDs, avoid chemical prophylaxis until approved by neurologist. - NPO, ST eval. P.T./OT evaluation and treatment. - [facility] accepted the patient but there will be no bed until tomorrow morning May 18. (2) H/O echocardiogram: Status: Acute Problem details: Patient's daughter mentioned that her mother had a recent echo a few weeks ago, when she was admitted at [facility] in the [place], and the indication for echo was because they noticed some congestion in her lungs at that time. He her echo report is the following: - Left ventricle: Hyperdynamic left ventricular systolic function with a visually estimated ejection fraction of greater than 70%. - Normal right ventricular size and function - No significant valvular heart disease - No pericardial effusion (3) Status post laparoscopic cholecystectomy: Status: Acute Problem details: on 05/17/25 w/ Dr West (4) Cholelithiasis: Status: Acute Problem details: As above (5) Type 2 diabetes mellitus, without long-term current use of insulin: Status: Chronic Problem details: Ordered insulin sliding scale during her stay at the hospital. A1c 6.5, was tested this month. Under good control with semaglutide 2 mg weekly and metformin ER 500 mg daily. (6) MEKHI (generalized anxiety disorder): Status: Chronic Problem details: Stable on Wellbutrin XL 450 mg daily and duloxetine 90 mg daily. (7) Major depression, recurrent: Status: Chronic Problem details: Stable on Wellbutrin XL 450 mg daily and duloxetine 90 mg daily. (8) Primary hypertension: Status: Chronic Problem details: Stable on valsartan/hydrochlorothiazide 320/25 daily and diltiazem CD 1 120 mg daily. Diltiazem 120 mg at p.m. was prescribed recently by [facility] at [facility]. (9) Adenomatous colon polyp: Status: Acute Problem details: 04/03/23 tubular adenoma x2. 3Y repeat. 11/05/17 tubular adenoma x3. (10) Moderate persistent asthma: Status: Chronic Problem details: Continue Advair 250/50 one puff twice daily, singular 10 mg daily, albuterol as needed. (11) Psoriasis: Status: Chronic Problem details: On methotrexate (12) Obstructive sleep apnea syndrome: Status: Chronic (13) Morbid obesity: Status: Chronic DS: Summary Hospital Course Hospital Course: Pt presented for an elective laparoscopic cholecystectomy. Postoperatively, Pt started to feel decreased sensation in her left upper extremity. I examined the patient and she has Lt facial droop along with loss of sensation and reduced power of her left upper extremity compared to the right side. lower extremity examination was okay. last seen normal was difficult to assess as the patient had surgery and was under the effect of anesthesia postoperatively. We activated stroke code and sent the patient for CT head without contrast in addition to CTA head and neck with contrast. I talked to the neurologist Dr. Adames, Who states that patient cannot get Tenecteplase with her recent surgery and that she will check the CT scan and the CTA is once they are pushed to [facility]. 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 Alarcon). Our general surgeon approved loading her with Plavix and aspirin. She states that they noticed that the gallbladder tissue was friable during the procedure & that she wants the drain to stay in for a week and for the patient to follow up at the surgery clinic office in 1 week. Time Spent with Patient Time attestation: Total time spent providing and/or coordinating discharge services: 75 min Exam Narrative: Exam Narrative: Physical exam GENERAL: Morbidly obese, no acute distress. HEAD AND NECK: Atraumatic, normocephalic CARDIOVASCULAR: RRR. Normal S1, S2. No murmurs. RESPIRATORY: Clear to auscultation B/L. Good air entry B/L. No wheezes or rhonchi. GASTROINTESTINAL: Mild tenderness to palpation. Clean dressing NEUROLOGY: Alert, awake. Lt facial droop along with loss of sensation and reduced power of her left upper extremity compared to the right side. lower extremity examination was okay. Const: Vital Signs, click to edit/add: Vital Signs - 24 hr 05/17/25 08:19 05/17/25 12:31 05/17/25 12:36 Temperature 98.1 F 98.6 F Pulse Rate 79 98 98 Respiratory Rate 16 20 21 Blood Pressure 139/75 192/89 H 195/89 H Pulse Oximetry 95 90 94 Oxygen Delivery Me thod Room Air Nasal Cannula Oxygen Flow Rate 3 05/17/25 12:40 05/17/25 12:45 05/17/25 12:50 Temperature Pulse Rate 92 91 90 Respiratory Rate 20 21 20 Blood Pressure 187/77 H 178/72 H 180/83 H Pulse Oximetry 97 96 95 Oxygen Delivery Me thod Oxygen Flow Rate 05/17/25 12:55 05/17/25 13:00 05/17/25 13:05 Temperature Pulse Rate 95 93 96 Respiratory Rate 20 20 18 Blood Pressure 167/76 H 170/73 H 163/81 H Pulse Oximetry 95 92 90 Oxygen Delivery Me thod Room Air Room Air Oxygen Flow Rate 05/17/25 13:10 05/17/25 13:15 05/17/25 13:20 Temperature 97.9 F Pulse Rate 94 92 94 Respiratory Rate 18 18 18 Blood Pressure 174/78 H 150/69 H 154/82 H Pulse Oximetry 92 91 93 Oxygen Delivery Me thod Room Air Oxygen Flow Rate 05/17/25 13:33 05/17/25 13:45 05/17/25 14:00 Temperature 97.5 F L Pulse Rate 93 86 89 Respiratory Rate 18 18 16 Blood Pressure 131/77 137/90 H 154/77 H Pulse Oximetry 92 91 91 Oxygen Delivery Me thod Room Air Room Air Room Air Oxygen Flow Rate 05/17/25 14:15 05/17/25 14:30 05/17/25 14:39 Temperature Pulse Rate 91 97 Respiratory Rate 16 16 18 Blood Pressure 150/73 H 162/80 H Pulse Oximetry 90 92 92 Oxygen Delivery Me thod Room Air Room Air Room Air Oxygen Flow Rate 05/17/25 15:00 05/17/25 15:00 05/17/25 15:30 Temperature 96.8 F L 96.8 F L Pulse Rate 93 95 Respiratory Rate 16 16 16 Blood Pressure 154/86 H 144/84 H Pulse Oximetry 92 92 92 Oxygen Delivery Me thod Room Air Room Air Room Air Oxygen Flow Rate 05/17/25 16:23 05/17/25 17:23 05/17/25 18:23 Temperature Pulse Rate 109 H Respiratory Rate Blood Pressure 151/76 H 148/84 H 184/94 H Pulse Oximetry 91 Oxygen Delivery Me thod Oxygen Flow Rate 05/17/25 19:23 Temperature 98.7 F Pulse Rate 108 H Respiratory Rate 16 Blood Pressure 173/79 H Pulse Oximetry 90 Oxygen Delivery Me thod Room Air Oxygen Flow Rate DS: Data Data Completed and Pending Labs on day of discharge: Labs from last 24 hours 05/17/25 05/17/25 20:26 20:05 POC Creatinine 1.[address] scan - head: Radiologist's impression: INDICATION: Left weakness and paresthesia. TECHNIQUE: CT head without contrast. COMPARISON: None. FINDINGS: No mass effect or midline shift. No hydrocephalus. Mild ill-defined low-attenuation in the periventricular and subcortical white matter. Remote lacunar infarct or dilated perivascular space in the left basal ganglia. No CT evidence of acute hemorrhage or infarction. No abnormal extra-axial fluid collection. Intracranial atherosclerosis. Bone windows show no acute calvarial fracture. Chronic right maxillary sinusitis. Orbits as imaged are unremarkable. IMPRESSION: 1. No acute intracranial abnormality. 2. Mild changes of chronic small vessel ischemic disease with remote lacunar infarct or dilated perivascular space in the left basal ganglia. 3. Chronic right maxillary sinusitis. Discharge Plan Discharge Disposition: General Acute Hospital Discharging Surgeon: Aziza Monteiro Follow-Up Appointment: Follow-up with general surgery office in 1 week, keep the drain in. Prescriptions: New clopidogrel 75 mg Tablet 75 mg PO DAILY Qty: 30 0RF aspirin [Children's Aspirin] 81 mg Tablet,Chewable 81 mg PO DAILY Qty: 30 0RF Continued multivitamin Tablet 1 tab PO DAILY albuterol sulfate 90 mcg/actuation HFA aerosol inhaler 2 puff inhalation DAILY PRN olopatadine 0.1 % drops 1 drp ophthalmic (eye) BID PRN furosemide 20 mg tablet 20 mg PO DAILY PRN Patient Comments: For weight increase 3 lbs overnight and 5 pounds in 1 week folic acid 1 mg tablet 1 mg PO DAILY montelukast 10 mg tablet 10 mg PO DAILY metformin 500 mg tablet extended release 24 hr 500 mg PO DAILY duloxetine 30 mg capsule,delayed release(DR/EC) 30 mg PO DAILY Rx Instructions: Total daily dose 90 mg duloxetine 60 mg capsule,delayed release(DR/EC) 60 mg PO DAILY fluticasone propion-salmeterol [Advair Diskus] 250-50 mcg/dose blister with device 1 inh inhalation BID Qty: 180 3RF methotrexate sodium 2.5 mg tablet 20 mg PO QWEEK Qty: 96 1RF Rx Instructions: 8 tabs weekly semaglutide 2 mg/dose (8 mg/3 mL) pen injector 2 mg subcut QWEEK Qty: 3 2RF bupropion HCl [Wellbutrin XL] 300 mg tablet extended release 24 hr 300 mg PO QAM Qty: 90 0RF Rx Instructions: Total dose 450 mg QD bupropion HCl 150 mg tablet extended release 24 hr 150 mg PO QAM Qty: 90 0RF Rx Instructions: Total dose 450 mg QD Held valsartan-hydrochlorothiazide 320-25 mg tablet 1 tab PO DAILY Hold Instructions: Resume on 05/20/25. Permissive hypertension as per Neurology recommendations diltiazem HCl 120 mg capsule,extended release 24hr 120 mg PO DAILY Hold Instructions: Resume on 05/20/25. Permissive hypertension as per Neurology recommendations Discontinued clindamycin HCl 150 mg capsule 600 mg PO ONCE PRN Rx Instructions: Take 4 tablets by mouth 60 min before start of dental work. Activity Level: Activity as Tolerated Discharge Diet: Diabetic and Heart Healthy (2 gm sodium, low fat) Patient Instructions: General Anesthesia (DC), Laparoscopic Cholecystectomy (DC), Post-Operative Instructions: Laparoscopic Cholecystectomy Additional Instructions: Follow-up with general surgery office in 1 week, keep the drain in. Follow-up: Keyur Dial MD [Primary Care Provider, [facility]] Discharge Orders: Transfer of Care to Other Hospital (ORDER); Ordered 05/17/25 Ordered By: Aziza Monteiro
[2025-05-17] MEDS: CLOPIDOGREL 75 MG TABLET 300 MG PO (23:36)
[2025-05-17] MEDS: ASPIRIN EC 325 MG TABLET PO (23:37)
[2025-05-18] VITALS (20 sets, daily range): BP systolic 130–162; BP diastolic 54–78; PULSE 91–104; RESP 16–22; TEMP 36.6–37; O2SAT 91–98
[2025-05-18] MEDS: HYDROCODONE-ACETAMIN 5-325 MG 1 TAB PO (03:34)
[2025-05-18 05:59] LABS: Hematocrit 37.4 % (33.0-51.0); Hemoglobin* 12.3 gm/dL (12.0-16.0); Immature Granulocytes Pct Auto 0.2 %; Mean Corpuscular HGB Conc 33 gm/dL (32-36); Mean Corpuscular Hemoglobin 30 pg (26-34); Mean Corpuscular Volume 90 fL (80-100); RDW Coefficient of Variation % 14.2 % (11.5-15.5); Red Blood Count 4.15 m/uL (4.00-5.20); White Blood Count* 19.20 K/uL (4.50-11.00)
[2025-05-18 06:10] LABS: Immature Granulocytes Abs Auto 0.00 K/uL (0.00-0.30); Lymphocytes Absolute Auto 1.10 K/uL (0.90-2.90); Slide Review Reflex No
[2025-05-18 06:12] LABS: Albumin* 3.7 g/dL (3.3-5.0); Chloride* 99 mmol/L (96-114)
[2025-05-18 06:13] LABS: Potassium* 3.9 mmol/L (3.6-5.1); Sodium* 132 mmol/L (135-149)
[2025-05-18 06:15] LABS: Alanine Aminotransferase* 152 U/L (4-35); Anion Gap 3 mEq/L (7-15); Aspartate Amino Transferase* 184 U/L (12-35); Bilirubin Direct* 0.2 mg/dL (0.0-0.5); Bilirubin Total* 0.7 mg/dL (0.1-1.5); Blood Urea Nitrogen* 20 mg/dL (7-30); Carbon Dioxide* 30 mmol/L (20-32); Creatinine* 0.8 mg/dL (0.5-1.5); Est. Creatinine Clearance* 53.91; Estimated Glomerular Filt Rate 83 ml/min; Total Protein* 6.7 g/dL (6.0-8.3)
[2025-05-18 06:16] LABS: Alkaline Phosphatase* 116 U/L (40-150); Calcium* 9.0 mg/dL (8.4-10.6); Glucose* 154 mg/dL (60-115)
--- NOTE | 2025-05-18 07:05 | PC.NURSE ---
Patient with cholecystectomy to the floor at 1330 with speech impairment, L.arm weakness and numbness, and L. facial asymmetry. Neurology and CT confirm stroke. Awaiting transfer to [place] this morning. Overnight stroke symptoms stable with speech notably improving. [place] drain, steri strips. PRN [place] and active ice for pain management. 1 Lt O2 overnight to keep sats >90%. Permissive HTN.
--- NOTE | 2025-05-18 09:02 | PM.GSPN ---
Subjective Subjective Date Seen: 05/18/25 Interval history: Patient is doing ok this morning. Does still have some weakness on her left side. Her smile does droop on the left side as well. No word finding difficulty. Denies any abdominal pain. Drain in place. Exam Narrative: Exam Narrative: Gen: alert and oriented. Abd: obese abdomen, soft, appropriately tender over incision sites. [place] drain in RUQ in place, minimal serousanguinous fluid. Const: Vital Signs, click to edit/add: Vital Signs - 24 hr 05/17/25 12:31 05/17/25 12:36 05/17/25 12:40 Temperature 98.6 F Pulse Rate 98 98 92 Pulse Rate [Right Pulse Oximeter] Respiratory Rate 20 21 20 Blood Pressure 192/89 H 195/89 H 187/77 H Blood Pressure [Le ft Arm] Blood Pressure [Ri ght Arm] Pulse Oximetry 90 94 97 Oxygen Delivery Me thod Nasal Cannula Oxygen Flow Rate 3 05/17/25 12:45 05/17/25 12:50 05/17/25 12:55 Temperature Pulse Rate 91 90 95 Pulse Rate [Right Pulse Oximeter] Respiratory Rate 21 20 20 Blood Pressure 178/72 H 180/83 H 167/76 H Blood Pressure [Le ft Arm] Blood Pressure [Ri ght Arm] Pulse Oximetry 96 95 95 Oxygen Delivery Me thod Oxygen Flow Rate 05/17/25 13:00 05/17/25 13:05 05/17/25 13:10 Temperature Pulse Rate 93 96 94 Pulse Rate [Right Pulse Oximeter] Respiratory Rate 20 18 18 Blood Pressure 170/73 H 163/81 H 174/78 H Blood Pressure [Le ft Arm] Blood Pressure [Ri ght Arm] Pulse Oximetry 92 90 92 Oxygen Delivery Me thod Room Air Room Air Oxygen Flow Rate 05/17/25 13:15 05/17/25 13:20 05/17/25 13:33 Temperature 97.9 F 97.5 F L Pulse Rate 92 94 93 Pulse Rate [Right Pulse Oximeter] Respiratory Rate 18 18 18 Blood Pressure 150/69 H 154/82 H 131/77 Blood Pressure [Le ft Arm] Blood Pressure [Ri ght Arm] Pulse Oximetry 91 93 92 Oxygen Delivery Me thod Room Air Room Air Oxygen Flow Rate 05/17/25 13:45 05/17/25 14:00 05/17/25 14:15 Temperature Pulse Rate 86 89 91 Pulse Rate [Right Pulse Oximeter] Respiratory Rate 18 16 16 Blood Pressure 137/90 H 154/77 H 150/73 H Blood Pressure [Le ft Arm] Blood Pressure [Ri ght Arm] Pulse Oximetry 91 91 90 Oxygen Delivery Me thod Room Air Room Air Room Air Oxygen Flow Rate 05/17/25 14:30 05/17/25 14:39 05/17/25 15:00 Temperature 96.8 F L Pulse Rate 97 93 Pulse Rate [Right Pulse Oximeter] Respiratory Rate 16 18 16 Blood Pressure 162/80 H 154/86 H Blood Pressure [Le ft Arm] Blood Pressure [Ri ght Arm] Pulse Oximetry 92 92 92 Oxygen Delivery Me thod Room Air Room Air Room Air Oxygen Flow Rate 05/17/25 15:00 05/17/25 15:30 05/17/25 16:23 Temperature 96.8 F L Pulse Rate 95 Pulse Rate [Right Pulse Oximeter] Respiratory Rate 16 16 Blood Pressure 144/84 H 151/76 H Blood Pressure [Le ft Arm] Blood Pressure [Ri ght Arm] Pulse Oximetry 92 92 Oxygen Delivery Me thod Room Air Room Air Oxygen Flow Rate 05/17/25 17:23 05/17/25 18:23 05/17/25 20:45 Temperature 98.7 F Pulse Rate 109 H 108 H Pulse Rate [Right Pulse Oximeter] Respiratory Rate 16 Blood Pressure 148/84 H 184/94 H 173/79 H Blood Pressure [Le ft Arm] Blood Pressure [Ri ght Arm] Pulse Oximetry 91 90 Oxygen Delivery Me thod Room Air Oxygen Flow Rate 05/17/25 22:13 05/17/25 22:13 05/17/25 22:45 Temperature Pulse Rate 102 H Pulse Rate [Right Pulse Oximeter] Respiratory Rate 20 Blood Pressure Blood Pressure [Le ft Arm] Blood Pressure [Ri ght Arm] Pulse Oximetry 92 87 L Oxygen Delivery Me thod Room Air Oxygen Flow Rate 05/17/25 23:00 05/17/25 23:00 05/17/25 23:00 Temperature 98.1 F Pulse Rate Pulse Rate [Right Pulse Oximeter] 104 H Respiratory Rate 20 20 Blood Pressure Blood Pressure [Le ft Arm] 145/71 H Blood Pressure [Ri ght Arm] Pulse Oximetry 94 94 Oxygen Delivery Me thod Nasal Cannula Nasal Cannula Oxygen Flow Rate 1.0 1.0 05/17/25 23:42 05/17/25 23:58 05/18/25 01:00 Temperature 98.1 F 98.1 F Pulse Rate 102 H 102 H 104 H Pulse Rate [Right Pulse Oximeter] Respiratory Rate 20 20 18 Blood Pressure 160/71 H 160/71 H 130/63 Blood Pressure [Le ft Arm] Blood Pressure [Ri ght Arm] Pulse Oximetry 92 92 93 Oxygen Delivery Me thod Room Air Oxygen Flow Rate 05/18/25 02:00 05/18/25 02:30 05/18/25 03:00 Temperature Pulse Rate 101 H 103 H Pulse Rate [Right Pulse Oximeter] 96 Respiratory Rate 20 20 Blood Pressure 145/71 H Blood Pressure [Le ft Arm] Blood Pressure [Ri ght Arm] 141/77 H Pulse Oximetry 94 91 Oxygen Delivery Me thod Nasal Cannula Nasal Cannula Oxygen Flow Rate 1.0 1.0 05/18/25 03:32 05/18/25 04:00 05/18/25 05:00 Temperature Pulse Rate 97 96 94 Pulse Rate [Right Pulse Oximeter] Respiratory Rate 20 22 Blood Pressure 141/77 H 162/78 H 150/74 H Blood Pressure [Le ft Arm] Blood Pressure [Ri ght Arm] Pulse Oximetry 93 96 95 Oxygen Delivery Me thod Nasal Cannula Nasal Cannula Nasal Cannula Oxygen Flow Rate 1.0 1.0 1.0 05/18/25 06:00 05/18/25 07:00 Temperature 98.6 F Pulse Rate 91 91 Pulse Rate [Right Pulse Oximeter] Respiratory Rate 20 Blood Pressure 138/70 Blood Pressure [Le ft Arm] Blood Pressure [Ri ght Arm] Pulse Oximetry 93 Oxygen Delivery Me thod Nasal Cannula Oxygen Flow Rate 1.0 Labs/Imaging Labs Labs: Leukocytosis (19), elevated transaminases. Normal bilirubin and alk phos Progress Note:A&P Assessment and plan (1) Suspected cerebrovascular accident: Status: Acute Assessment and Plan: New onset left sided weakness and facial droop post op. Hospitalist did the work up overnight with plans to transfer to [facility] this morning. (2) Status post laparoscopic cholecystectomy: Status: Acute Assessment and Plan: POD 1 laparoscopic cholecystectomy. Patient admitted overnight post op. Abdomen benign and VSS overnight. Minimal output from drain, serosanguineous with no evidence of bile. Patient is at higher risk for possible leak of the cystic duct stump. Recommend patient keep the drain in place. Will follow up with the patient at my [facility] clinic next Friday. Increase in leukocytosis post op (19). Would recommend trending fever curve and WBC while in patient. Could consider a course of antibiotics, but will defer to primary team. Plan - recommend po pain meds and stool softeners at the time of discharge - continue low fat diet for next 2 weeks - no lifting > 20 lbs or strenuous exercise for 2 weeks - keep drain in place, will evaluate for removal at follow up appointment on 05/25/25
[2025-05-18] MEDS: ASPIRIN 81 MG TAB.CHEW PO (09:33)
[2025-05-18] MEDS: ALBUTEROL SULFATE 2.5 MG/3 ML VIAL.NEB NEB ×2 (09:33→14:18)
[2025-05-18] MEDS: BUDESONIDE 0.5 MG/2ML NEB NEB (10:00)
[2025-05-18] MEDS: LACTATED RINGERS 1000 ML 1,000 ML 100 ML IV (11:55)
--- NOTE | 2025-05-18 12:57 | P.IMPN_ITS ---
Assessment and Plan Assessment and plan (1) Suspected cerebrovascular accident: Problem comment: We activated stroke code and sent the patient for CT head without contrast in addition to CTA head and neck with contrast. I talked to the neurologist Dr. Adames, Who states that patient cannot get Tenecteplase with her recent surgery and that she will check the CT scan and the CTA is once they are pushed through the behavioral modification assistant to [place]. 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 Alarcon). Our general surgeon approved loading her with Plavix and aspirin. She states that they noticed that the gallbladder tissue was friable during the procedure & that she wants the drain to stay in for a week and for the patient to follow up at the surgery clinic office in 1 week. -permissive hypertension protocol. Will hold all of her blood pressure medications. - Frequent neurologic exam. Stat CT head if any deterioration in the neurological status of the patient. - control blood sugar, keep below 180. - DVT prophylaxis with SCDs, avoid chemical prophylaxis until approved by ne urologist. - NPO, ST eval. P.T./OT evaluation and treatment. - [facility] accepted the patient but there will be no bed until tomorrow morning May 18. - 05/18 exam slightly improved, as above. I spoke with Dr. Calixto from Neurology to give him an update. We discussed possibly starting a statin, but noted that her transaminases were elevated, and he said to hold off for now and at [place] could started tomorrow. We did just get nurse to nurse, Dr. Espinosa is the accepting doc. Anticipating transfer to [place] will happen shortly. Status: Acute (2) Status post laparoscopic cholecystectomy: Problem comment: on 05/17/25 w/ Dr West Status: Acute (3) Elevated liver transaminase level: Problem comment: May be related to recent cholecystectomy for chronic cholecystitis. Will hold off on adding a statin for suspected stroke for now. If liver enzymes trend downward, this could be added tomorrow. Status: Acute Subjective Time Seen by Provider: 08:08 Date Seen: 05/18/25 Interval history: Ariana tells me she's doing well. Her daughter is in the room with her and notes Ariana's ability to find the right words has improved. Exam Narrative: Exam Narrative: General: No acute distress. Awake, alert, oriented x3. No pallor. No jaundice. Oropharynx: Clear. Mucous membranes moist. Cardiovascular: Regular rate and rhythm. No murmurs, gallops, or rubs. Respiratory: Clear to auscultation bilaterally. No wheezes or crackles. Abdomen: Bowel sounds present. Soft, nondistended, nontender. Extremities: No lower extremity edema. Neuro: Left wrist has no extensor strength, so and is flopped over for attempted Rhomberg Mild left lower facial droop is present, Cranial nerves 2-12 are otherwise intact. Extraocular movements are full. No nystagmus. Tongue is midline. Peripheral vision and vision are grossly intact. Strength is 3/5 in UE with the exception of the wrist and hand which are 0/5. 4/5 strength in Left foot extension, LLE otherwise 5/5 strength. Right extremities are 5/5 strength. Light touch sensation is diminished in the left upper arm only, otherwise intact in face, body and extremities. Const: Vital Signs, click to edit/add: Vital Signs - 24 hr 05/17/25 13:00 05/17/25 13:05 05/17/25 13:10 Temperature Pulse Rate 93 96 94 Pulse Rate [Right Pulse Oximeter] Respiratory Rate 20 18 18 Blood Pressure 170/73 H 163/81 H 174/78 H Blood Pressure [Le ft Arm] Blood Pressure [Ri ght Arm] Pulse Oximetry 92 90 92 [facility] Room Air Room Air Oxygen Flow Rate 05/17/25 13:15 05/17/25 13:20 05/17/25 13:33 Temperature 97.9 F 97.5 F L Pulse Rate 92 94 93 Pulse Rate [Right Pulse Oximeter] Respiratory Rate 18 18 18 Blood Pressure 150/69 H 154/82 H 131/77 Blood Pressure [Le ft Arm] Blood Pressure [Ri ght Arm] Pulse Oximetry 91 93 92 Oxygen Delivery [facility] Room Air Room Air Oxygen Flow Rate 05/17/25 13:45 05/17/25 14:00 05/17/25 14:15 Temperature Pulse Rate 86 89 91 Pulse Rate [Right Pulse Oximeter] Respiratory Rate 18 16 16 Blood Pressure 137/90 H 154/77 H 150/73 H Blood Pressure [Le ft Arm] Blood Pressure [Ri ght Arm] Pulse Oximetry 91 91 90 Oxygen Delivery Me thod Room Air Room Air Room Air Oxygen Flow Rate 05/17/25 14:30 05/17/25 14:39 05/17/25 15:00 Temperature 96.8 F L Pulse Rate 97 93 Pulse Rate [Right Pulse Oximeter] Respiratory Rate 16 18 16 Blood Pressure 162/80 H 154/86 H Blood Pressure [Le ft Arm] Blood Pressure [Ri ght Arm] Pulse Oximetry 92 92 92 Oxygen Delivery Me thod Room Air Room Air Room Air Oxygen Flow Rate 05/17/25 15:00 05/17/25 15:30 05/17/25 16:23 Temperature 96.8 F L Pulse Rate 95 Pulse Rate [Right Pulse Oximeter] Respiratory Rate 16 16 Blood Pressure 144/84 H 151/76 H Blood Pressure [Le ft Arm] Blood Pressure [Ri ght Arm] Pulse Oximetry 92 92 Oxygen Delivery Me thod Room Air Room Air Oxygen Flow Rate 05/17/25 17:23 05/17/25 18:23 05/17/25 20:45 Temperature 98.7 F Pulse Rate 109 H 108 H Pulse Rate [Right Pulse Oximeter] Respiratory Rate 16 Blood Pressure 148/84 H 184/94 H 173/79 H Blood Pressure [Le ft Arm] Blood Pressure [Ri ght Arm] Pulse Oximetry 91 90 Oxygen Delivery Me thod Room Air Oxygen Flow Rate 05/17/25 22:13 05/17/25 22:13 05/17/25 22:45 Temperature Pulse Rate 102 H Pulse Rate [Right Pulse Oximeter] Respiratory Rate 20 Blood Pressure Blood Pressure [Le ft Arm] Blood Pressure [Ri ght Arm] Pulse Oximetry 92 87 L Oxygen Delivery Me thod Room Air Oxygen Flow Rate 05/17/25 23:00 05/17/25 23:00 05/17/25 23:00 Temperature 98.1 F Pulse Rate Pulse Rate [Right Pulse Oximeter] 104 H Respiratory Rate 20 20 Blood Pressure Blood Pressure [Le ft Arm] 145/71 H Blood Pressure [Ri ght Arm] Pulse Oximetry 94 94 Oxygen Delivery Me thod Nasal Cannula Nasal Cannula Oxygen Flow Rate 1.0 1.0 05/17/25 23:42 05/17/25 23:58 05/18/25 01:00 Temperature 98.1 F 98.1 F Pulse Rate 102 H 102 H 104 H Pulse Rate [Right Pulse Oximeter] Respiratory Rate 20 20 18 Blood Pressure 160/71 H 160/71 H 130/63 Blood Pressure [Le ft Arm] Blood Pressure [Ri ght Arm] Pulse Oximetry 92 92 93 Oxygen Delivery Me thod Room Air Oxygen Flow Rate 05/18/25 02:00 05/18/25 02:30 05/18/25 03:00 Temperature Pulse Rate 101 H 103 H Pulse Rate [Right Pulse Oximeter] 96 Respiratory Rate 20 20 Blood Pressure 145/71 H Blood Pressure [Le ft Arm] Blood Pressure [Ri ght Arm] 141/77 H Pulse Oximetry 94 91 Oxygen Delivery Me thod Nasal Cannula Nasal Cannula Oxygen Flow Rate 1.0 1.0 05/18/25 03:32 05/18/25 04:00 05/18/25 05:00 Temperature Pulse Rate 97 96 94 Pulse Rate [Right Pulse Oximeter] Respiratory Rate 20 22 Blood Pressure 141/77 H 162/78 H 150/74 H Blood Pressure [Le ft Arm] Blood Pressure [Ri ght Arm] Pulse Oximetry 93 96 95 Oxygen Delivery Me thod Nasal Cannula Nasal Cannula Nasal Cannula Oxygen Flow Rate 1.0 1.0 1.0 05/18/25 06:00 05/18/25 07:00 Temperature 98.6 F Pulse Rate 91 91 Pulse Rate [Right Pulse Oximeter] Respiratory Rate 20 Blood Pressure 138/70 Blood Pressure [Le ft Arm] Blood Pressure [Ri ght Arm] Pulse Oximetry 93 Oxygen Delivery Me thod Nasal Cannula Oxygen Flow Rate 1.0 Labs Labs: Laboratory Results - last 24 hr 05/17/25 05/18/25 20:26 05:45 WBC 19.20 H RBC 4.15 Hgb 12.3 Hct 37.4 MCV 90 MCH 30 MCHC 33 RDW Coeff of Michel 14.2 Plt Count 327 Neut % (Auto) 88.2 H Lymph % (Auto) 5.5 L [place] % (Auto) 5.8 Eos % (Auto) 0.0 Baso % (Auto) 0.3 Neut # (Auto) 16.90 H Lymph # (Auto) 1.10 [place] # (Auto) 1.10 H Eos # (Auto) 0.00 Baso # (Auto) 0.10 Abs Immat Gran (auto) 0.00 Imm/Tot Granulo (auto) 0.2 Sodium 132 L Potassium 3.9 Chloride 99 Carbon Dioxide 30 Anion Gap 3 L BUN 20 Creatinine 0.8 Estimated Creat Clear 53.91 Estimated GFR 83 Glucose 154 H Calcium 9.0 Total Bilirubin 0.7 Direct Bilirubin 0.2 AST 184 H ALT 152 H Alkaline Phosphatase 116 Total Protein 6.7 Albumin 3.7 POC Creatinine 1.2
--- NOTE | 2025-05-18 18:19 | PC.NURSE ---
Arrived to find the patient alert and oriented and vitally stable. Speech slurred. Left facial droop. Left arm fully numb. Left arm lays flaccid at rest but she can move it weakly. Left leg has weak strength but full sensation. Coordination is unmanaged on left side. Able to ambulate with stand by assistance. CMS intact. No neuro changes over the time I had her as a patient. Lap sites show seri strips saturated with dried drainage. No longer producing output as of the start of my shift. Right side [place] produced 30 ml of output over around nine hours. Signs of small clotting in the drain. Able to strip them out easily. Coloration is a light serosanguineous. No drainage around insertion site. 5/10 pain of the [place] site treated twice over nine hours with IV pain medication given NPO status. Care was transferred to EMS at 1610 for the patient to be brought to [facility].
== END 2025-05-18 16:10 | disposition short-term general hospital (02) | DRG 987 ==
LOC: OR 09:07 → MEDSURG 05-19 12:05
PROVIDERS: Admitting Provider Surgery; PCP Family Medicine; Visit Provider Surgery
PROC: 0FT44ZZ Resection of Gallbladder, Percutaneous Endoscopic Approach (ICD-10-PCS; CPT 47563; 2025-05-17 09:00)
DX: I97.821 Postprocedural cerebrovascular infarction following other surgery (principal); I63.233 Cerebral infarction due to unspecified occlusion or stenosis of bilateral carotid arteries; K80.12 Calculus of gallbladder with acute and chronic cholecystitis without obstruction; F33.9 Major depressive disorder, recurrent, unspecified; Z68.42 Body mass index [BMI] 45.0-49.9, adult; R29.810 Facial weakness; G83.24 Monoplegia of upper limb affecting left nondominant side; R20.9 Unspecified disturbances of skin sensation; E66.01 Morbid (severe) obesity due to excess calories; E11.9 Type 2 diabetes mellitus without complications; J45.40 Moderate persistent asthma, uncomplicated; L40.9 Psoriasis, unspecified; G47.33 Obstructive sleep apnea (adult) (pediatric); F41.1 Generalized anxiety disorder; I11.0 Hypertensive heart disease with heart failure; I50.9 Heart failure, unspecified; Z79.631 Long term (current) use of antimetabolite agent; Z79.85 Long-term (current) use of injectable non-insulin antidiabetic drugs; Z79.84 Long term (current) use of oral hypoglycemic drugs; Z79.82 Long term (current) use of aspirin; Z79.02 Long term (current) use of antithrombotics/antiplatelets; D12.6 Benign neoplasm of colon, unspecified
CPT/HCPCS: 00790; 36415; 70450; 70496; 70498; 74300; 80048; 80076; 82565; 82962; 85025; 94640; 94761; A9270; J0665; J0736; J1100; J1171; J1885; J2405; J2704; J3010; J3490; J7120; J7626; Q9967

== ENCOUNTER 2025-05-18 16:11 | Outpatient (CLI) | payer OTHER, SELFPAY | END 2025-05-18 16:12 | disposition home or self-care (01) | LOC: AMB 05-19 15:35 | PROVIDERS: PCP Family Medicine; Visit Provider Emergency Medicine | DX: I63.9 Cerebral infarction, unspecified (principal) | CPT/HCPCS: A0425; A0427 ==

== ENCOUNTER 2025-06-23 11:59 | Outpatient (CLI) | payer OTHER, SELFPAY | END 2025-06-23 12:00 | disposition home or self-care (01) | PROVIDERS: PCP Family Medicine; Visit Provider Family Medicine | DX: I10 Essential (primary) hypertension (principal); E11.9 Type 2 diabetes mellitus without complications | CPT/HCPCS: 80048; 85025 ==

== ENCOUNTER 2025-07-26 19:07 | Outpatient (CLI) | payer OTHER, SELFPAY ==
--- NOTE | 2025-07-26 19:20 | CRLHL7_ITS ---
For Patients: As a result of the Century Cures Act, medical imaging exams and procedure reports are released immediately into your electronic medical record. You may view this report before your referring provider. If you have questions, please contact your health care provider. INDICATION: BILATERAL SCREENING MAMMOGRAM, ASYMPTOMATIC 65 Y/O FEMALE COMPARISON: 06/23/2024, 07/01/2018, 12/17/2016 TECHNIQUE: Digital mammogram in CC and MLO projections including computer-aided detection (CAD) and tomosynthesis. BREAST COMPOSITION: There are scattered areas of fibroglandular density. FINDINGS: No suspicious findings. ASSESSMENT: BI-RADS 1 Negative RECOMMENDATION: Annual screening mammogram. A lay language report of this examination will be provided to the patient. Dictated by: Keyur Davis MD @ 07/27/2025 09:41:11 (Electronically Signed)
== END 2025-07-26 19:08 | disposition home or self-care (01) ==
LOC: MAMMO 19:08
PROVIDERS: PCP Family Medicine; Visit Provider Family Medicine
DX: Z12.31 Encounter for screening mammogram for malignant neoplasm of breast (principal)
CPT/HCPCS: 77063; 77067

== ENCOUNTER 2025-09-07 08:33 | Outpatient (CLI) | payer OTHER, SELFPAY | END 2025-09-07 08:34 | disposition home or self-care (01) | PROVIDERS: PCP Family Medicine; Visit Provider Family Medicine | DX: E11.9 Type 2 diabetes mellitus without complications (principal); I10 Essential (primary) hypertension | CPT/HCPCS: 80048; 80061; 82043; 82570 ==